=== PATIENT | male | born 1940 | race Caucasian/White ===

== ENCOUNTER → 2023-04-09 06:34 | Day surgery (SDC) | payer BC, SELFPAY | LOC: GI 06:34 | PROVIDERS: ATTENDING PHYSICIAN Internal Medicine Gastroenterology | DX: R10.13 Epigastric pain (principal); R63.4 Abnormal weight loss; K22.2 Esophageal obstruction; K25.9 Gastric ulcer, unspecified as acute or chronic, without hemorrhage or perforation; K22.89 Other specified disease of esophagus; K44.9 Diaphragmatic hernia without obstruction or gangrene; K31.89 Other diseases of stomach and duodenum; K31.7 Polyp of stomach and duodenum; R13.10 Dysphagia, unspecified; K29.50 Unspecified chronic gastritis without bleeding; K25.3 Acute gastric ulcer without hemorrhage or perforation | CPT/HCPCS: 43239; 88305; 88342 ==

== ENCOUNTER → 2023-05-20 15:08 | Outpatient (REF) | payer BC, SELFPAY | LOC: RAD 15:08 | PROVIDERS: ATTENDING PHYSICIAN Internal Medicine Gastroenterology; FAMILY PHYSICIAN Student in an Organized Health Care Education/Training Program | DX: R10.13 Epigastric pain (principal); R63.4 Abnormal weight loss | CPT/HCPCS: 74177; Q9967 ==

== ENCOUNTER 2023-08-29 11:00 | Emergency (ER) | payer BC, SELFPAY ==
[2023-08-29 11:01] VITALS: BP 167/105
[2023-08-29 11:47] VITALS: BMI 26.3
[2023-08-29 12:02] LABS: % Basophils 0.4 % (0-2); % Eosinophils 1.9 % (0-6); % Immature Granulocytes 0.4 % (0-0.5); % Lymphocytes 24.6 % (20.5-51.1); % Neutrophils 62.7 % (42.2-75.2); Absolute Eosinophils 0.1 10^3/uL (0-0.7); Absolute Lymphocytes 1.4 10^3/uL (1.2-3.4); Absolute Monocytes 0.6 10^3/uL (0.1-0.6); Absolute Neutrophils 3.6 10^3/uL (1.4-6.5); Hematocrit 35.7 % (39.0-52.0); Hemoglobin 12.6 g/dL (13.0-18.0); Mean Corp Hgb Conc. 35.3 g/dL (33.0-37.0); Mean Corpuscular Hgb 29.9 pg (27.0-31.0); Mean Corpuscular Volume 84.8 fL (80.0-94.0); Mean Platelet Volume 9.8 fL (7.4-10.4); Nucleated Red Blood Cells % 0 % (-); Platelet Count 150 10^3/uL (130-400); Red Blood Cell Count 4.21 10^6/uL (4.70-6.10); Red Cell Dist. Width 14.1 % (11.5-14.5); White Blood Cell Count 5.7 10^3/uL (4.8-10.8)
--- NOTE | 2023-08-29 12:10 | ED.GENMED ---
History of Present Illness
General
Chief Complaint: Abdominal Pain
Source: patient
Time Seen by Provider: 08/29/23 11:48
History of Present Illness
History of Present Illness:
82yoM with a history of hypertension, hyperlipidemia, and diverticulosis presenting with his for evaluation of abdominal pain x 1 week. He reports intermittent LLQ pain over the past week. He is also having malaise and chills. No fevers. He
reports normal bowel movements. He has a history of diverticulitis and this feels the same. He is otherwise asymptomatic. Only previous abdominal surgery is an appendectomy.
Past History
Past History
ED Past Medical History: CAD, HTN, Hypercholesterolemia, Renal failure and Other (Aneurysm Iliac artery, Herniated disc Lumbar spine 2 and Cervical 1, Slight Neuropathy, Duodenal Ulcer, diverticulitis)
ED Past Surgical History: Appendectomy and Cardiac (Stent)
Social History
Tobacco: Former smoker
Alcohol: Daily (Wine 2 glasses)
Personal:
Living: with family
Phy Exam
Physical Exam
Physical Exam:
Mild tenderness to LUQ. No tenderness to LLQ on palpation. Abdomen soft, non-distended. No guarding or rebound tenderness.
General Physical Exam
General Presentation: well appearing and no apparent distress
General age: appears stated age
General Skin: warm and dry
General Habitus: normal
General Mental: alert
General Hydration: appears well hydrated
Cardiovascular Exam
Cardiovascular Exam: regular rate/rhythm and no murmur
Pulmonary Exam
Pulmonary Exam: lungs clear, no respiratory distress, no crackles and no wheezing
Gastrointestinal Exam
Gastrointestinal Exam: soft and non distended
Palpation: left upper quadrant: Mild tenderness
Musculoskeletal Exam
Musculoskeletal Exam: no edema
Skin Exam
Skin Exam: normal color and warm/dry
Psychiatric Exam
Psychiatric Exam: normal mood/affect
Course
Orders/Labs/Results
Orders:
Orders
08/29/23 11:46
Complete Blood Count/With Diff Urgent
Comprehensive Metabolic Panel Urgent
Lipase Urgent
08/29/23 12:10
CT Abd/pelvis W Iv Cont Urgent
Comment:
Reason For Exam: LLQ pain, hx of diverticulitis
Abnormal Lab Results
08/29/23
11:46
RBC 4.21 L 10^6/uL
(4.70-6.10)
Hgb 12.6 L g/dL
(13.0-18.0)
Hct 35.7 L %
(39.0-52.0)
Monocytes % 10.0 H %
(1.7-9.3)
08/29/23 11:46
08/29/23 11:46
Vital Signs
Initial and Last Documented VS:
Initial Vital Signs
Temp Pulse Resp BP Pulse Ox
98.1 F 64 18 167/105 98
08/29/23 11:01 08/29/23 11:01 08/29/23 11:01 08/29/23 11:01 08/29/23 11:01
Last Documented Vital Signs
Temp Pulse Resp BP Pulse Ox
98.1 F 66 16 147/98 96
08/29/23 11:01 08/29/23 13:55 08/29/23 13:55 08/29/23 13:55 08/29/23 13:55
MDM/Problems Addressed
Differential Diagnosis Includes:
82yoM here with intermittent LLQ pain x 1 week. Hx of diverticulitis. Patient is afebrile and hemodynamically stable. He is well-appearing in no acute distress. No signs of peritonitis on abdominal exam. Differential diagnosis includes but is
not limited to: Diverticulitis, perforation, abscess, constipation, nonspecific abdominal pain
Initial ED plan: Check abdominal labs and CT abdomen. Patient declines analgesics.
*Critical Care Note
Total Time (30-74mins, 75-104mins- exclusive of procedures): Not Applicable
Update Note
Update Note:
Labs unremarkable including normal white count, renal function, LFTs, and electrolytes. No evidence of diverticulitis on CT and no other acute findings noted. No indication for admission at this time. Advised close PCP and GI follow-up. Strict
ED return precautions discussed including any worsening pain or fevers. Patient expressed understanding and is agreeable to plan. Patient discharged in stable condition.
ED Attending Note
-
Portions of this chart may have been created with voice recognition software.� Occasional wrong word or��sound alike� substitutions may have occurred due to the inherent limitations of voice recognition software.
Discharge Plan
Departure
Patient Disposition: Home (Routine Discharge)
Date of Disposition: 08/29/23
Time of Disposition: 14:51
Patient with high blood pressure during this ER visit?: Yes
Discharge Problem:
Nonspecific abdominal pain
Instructions: Abdominal Pain
Prescriptions:
No Action
atorvastatin 20 MG tablet
20 mg PO HS
tramadol 50 MG tablet
50 mg PO DAILY
Patient Comments:
10/29/2022: last filled 09/20/22, 120 tabs for 30 days from [facility]
alprazolam 0.5 MG tablet
0.5 mg PO HS
Patient Comments:
10/29/2022: last filled 08/19/22, 90 tabs for 90 days from [facility]
famotidine 20 MG tablet
20 mg PO HS
aspirin 81 MG tablet,chewable
81 mg PO QPM
vitamin B complex 1 TAB tablet
1 tab PO DAILY
lansoprazole 30 MG tablet,disintegrat, delay rel
30 mg PO DAILY
PreserVision AREDS 1 CAP capsule
1 cap PO BID
cyanocobalamin (vitamin B-12) [Vitamin B-12] 1,000 mcg Tablet
1,000 mcg PO Q48H
dorzolamide-timolol 22.3-6.8 mg/mL drops
1 drp BOTH EYES BID
magnesium 250 mg Tablet
250 mg PO DAILY
alfuzosin 10 mg tablet extended release 24 hr
10 mg PO DAILY
valsartan 80 mg Tablet
240 mg PO DAILY 30 Days Qty: 90 0RF
amlodipine 5 mg Tablet
5 mg PO DAILY 30 Days Qty: 30 0RF
simethicone 80 mg Tablet,Chewable
80 mg PO TIDPRN PRN (Reason: gi upset) 30 Days Qty: 90 0RF
cefdinir 300 mg capsule
300 mg PO Q12H 5 Days Qty: 10 0RF
metronidazole 500 mg tablet
500 mg PO Q8H 3 Days Qty: 9 0RF
ondansetron 4 mg tablet,disintegrating
4 mg PO Q8H PRN (Reason: nausea and vomiting) 4 Days Qty: 12 0RF
Referrals:
UNKNOWN - PT DOES,NOT KNOW [Family Provider] -
Activity Restrictions/Additional Instructions:
Please follow-up with your family doctor and aerial photographer next week. Return to the ER with any new or worsening symptoms.
Interventions
Interventions:
*Risk Screen - Suicide Last Done: 08/29/23 11:01
*General Assessment Last Done: 08/29/23 11:01
*ED COVID-19 Vaccine History Last Done: 08/29/23 11:01
VS-Hewoxh-Horpgplyjy Assessment Last Done: 08/29/23 11:44
Discharge Date and Time
Print Language: MALTESE
[2023-08-29 12:13] LABS: ALT (SGPT) 19 U/L (0-50); AST (SGOT) 22 U/L (17-59); Albumin 4.4 g/dl (3.5-5.0); Alkaline Phosphatase 86 U/L (38-126); Blood Urea Nitrogen 20 mg/dl (9-20); Calcium 9.7 mg/dl (8.4-10.2); Carbon Dioxide 23 mmol/L (22-30); Chloride 105 mmol/L (98-107); Estimated Creatinine Clearance 46 ml/min; Glucose 99 mg/dl (70-99); Lipase 181 U/L (23-300); Potassium 3.9 mmol/L (3.5-5.1); Sodium 137 mmol/L (135-145); Total Bilirubin 0.7 mg/dl (0.2-1.3); Total Protein 6.6 g/dl (6.3-8.2); eGFR > 60.00
[2023-08-29 13:55] VITALS: BP 147/98
== END 2023-08-29 15:30 | disposition home or self-care (01) ==
LOC: EMR 11:00
PROVIDERS: Emergency Medicine; EMERGENCY PHYSICIAN Emergency Medicine
DX: R10.32 Left lower quadrant pain (principal); R68.83 Chills (without fever); R53.81 Other malaise; K57.90 Diverticulosis of intestine, part unspecified, without perforation or abscess without bleeding; E78.00 Pure hypercholesterolemia, unspecified; I25.10 Atherosclerotic heart disease of native coronary artery without angina pectoris; I72.3 Aneurysm of iliac artery; I12.9 Hypertensive chronic kidney disease with stage 1 through stage 4 chronic kidney disease, or unspecified chronic kidney disease; N18.9 Chronic kidney disease, unspecified; G62.9 Polyneuropathy, unspecified; Z87.891 Personal history of nicotine dependence; Z95.5 Presence of coronary angioplasty implant and graft; Z79.82 Long term (current) use of aspirin; Z88.0 Allergy status to penicillin; Z88.2 Allergy status to sulfonamides; Z91.030 Bee allergy status
CPT/HCPCS: 99285; 74177; 80053; 83690; 85025; Q9967

== ENCOUNTER → 2023-12-29 06:24 | Day surgery (SDC) | payer BC, SELFPAY | LOC: GI 06:24 | PROVIDERS: ATTENDING PHYSICIAN Internal Medicine Gastroenterology | DX: K22.89 Other specified disease of esophagus (principal); K22.2 Esophageal obstruction; K31.7 Polyp of stomach and duodenum; K44.9 Diaphragmatic hernia without obstruction or gangrene; K31.89 Other diseases of stomach and duodenum; K25.9 Gastric ulcer, unspecified as acute or chronic, without hemorrhage or perforation | CPT/HCPCS: 43239; 88305; 88342 ==

== ENCOUNTER → 2024-02-04 11:01 | Outpatient (REF) | payer BC, SELFPAY | LOC: RCS 11:01 | PROVIDERS: ATTENDING PHYSICIAN Nurse Practitioner; FAMILY PHYSICIAN Student in an Organized Health Care Education/Training Program | DX: I27.20 Pulmonary hypertension, unspecified (principal) | CPT/HCPCS: 93306 ==

== ENCOUNTER 2024-08-13 18:29 | Emergency (ER) | payer BC, SELFPAY ==
[2024-08-13 18:34] VITALS: BP 171/109
[2024-08-13 18:56] LABS: % Basophils 0.5 % (0-2); % Eosinophils 2.9 % (0-6); % Immature Granulocytes 0.2 % (0-0.5); % Lymphocytes 22.6 % (20.5-51.1); % Monocytes 10.3 % (1.7-9.3); % Neutrophils 63.5 % (42.2-75.2); Absolute Eosinophils 0.2 10^3/uL (0-0.7); Absolute Lymphocytes 1.4 10^3/uL (1.2-3.4); Absolute Monocytes 0.6 10^3/uL (0.1-0.6); Absolute Neutrophils 3.9 10^3/uL (1.4-6.5); Hematocrit 35.2 % (39.0-52.0); Mean Corp Hgb Conc. 34.1 g/dL (33.0-37.0); Mean Corpuscular Hgb 30.4 pg (27.0-31.0); Mean Corpuscular Volume 89.1 fL (80.0-94.0); Nucleated Red Blood Cells % 0 % (-); Platelet Count 162 10^3/uL (130-400); Red Blood Cell Count 3.95 10^6/uL (4.70-6.10); Red Cell Dist. Width 14.2 % (11.5-14.5); White Blood Cell Count 6.1 10^3/uL (4.8-10.8)
[2024-08-13 19:25] LABS: ALT (SGPT) 21 U/L (0-50); AST (SGOT) 24 U/L (17-59); Albumin 4.8 g/dl (3.5-5.0); Alkaline Phosphatase 81 U/L (38-126); Blood Urea Nitrogen 21 mg/dl (9-20); Calcium 9.4 mg/dl (8.4-10.2); Carbon Dioxide 23 mmol/L (22-30); Chloride 106 mmol/L (98-107); Glucose 105 mg/dl (70-99); Lipase 242 U/L (23-300); Potassium 4.1 mmol/L (3.5-5.1); Sodium 138 mmol/L (135-145); Total Bilirubin 0.6 mg/dl (0.2-1.3); Total Protein 7.3 g/dl (6.3-8.2); eGFR > 60.00
[2024-08-13 19:51] LABS: Troponin I < 0.012 ng/ml
[2024-08-13 22:07] VITALS: BP 181/102
[2024-08-13 22:08] VITALS: BMI 30.3
[2024-08-13 23:00] VITALS: BP 166/104
[2024-08-13] MEDS: PROTONIX IV 40 MG IV (23:58)
[2024-08-13] MEDS: NSS 1000 IV (23:58)
[2024-08-14] VITALS: BP 169/112
--- NOTE | 2024-08-14 00:08 | ED.GENMED ---
History of Present Illness
General
Chief Complaint: Abdominal Pain
Source: patient, spouse, previous radiology exam (Unremarkable CT abdomen pelvis May 2023, August 2023.) and previous hospital records (Upper endoscopy December 2019 for-reevaluation of gastric ulcer. Evidence of gastritis, hiatal hernia)
Exam Limitations: none
Time Seen by Provider: 08/13/24 22:48
Nursing documentation reviewed up to this point in time: agreed with
History of Present Illness
History of Present Illness:
This is an 83-year-old gentleman who resides at home with his . He has history of CAD, hypertension, hyperlipidemia, diverticulosis with 1 previous episode of sigmoid diverticulitis, history of peptic ulcer disease, hiatal hernia, chronic
kidney disease stage IIIa.
He complains of upper abdominal pain/epigastric pain that began around 2 PM today approximately 3 to 4 hours after eating a large breakfast. Upper abdominal pain has been persistent throughout the day accompanied with frequent belching, radiating
to his back and intermittent mild nausea without vomiting. He took a dose of antacid without relief and no significant relief with intermittent belching throughout the day. He does admit to rare similar episodes in the past but generally not as
severe and not as persistent.
Blood pressure has been moderately elevated throughout the day today as well.
His blood pressure had been running low, personnel clerks supervisor adjusted his antihypertensives 1 month ago due to hypotension and since then blood pressure has been well-controlled throughout the month with systolic running 120s to 130s.
Chronically maintained on Dexilant 60 mg but admits to running out of this a few days ago and thus has been taking an old prescription of Dexilant 30 mg over the past few days.
He denies chest pain or cough no shortness of breath, no dysuria no urgency no hematuria. He has not passed a bowel movement today, his last bowel movement was yesterday. He has not been passing gas.
Currently epigastric pain is improved but has not completely resolved.
Past History
Past History
ED Past Medical History: CAD, HTN, Hypercholesterolemia, Renal failure and Other (Aneurysm Iliac artery, Herniated disc Lumbar spine 2 and Cervical 1, Slight Neuropathy, Duodenal Ulcer, diverticulitis)
ED Past Surgical History: Appendectomy and Cardiac (Stent)
Social History
Tobacco: Former smoker
Alcohol: Daily (Wine 2 glasses)
Personal:
Living: with family
Phy Exam
Physical Exam
Physical Exam:
GENERAL: 83-year-old gentleman appears stated age, awake and alert, pleasant, appears in no acute distress. is accompanying.
EYE: anicteric
NECK: Supple, nontender, no meningismus, no significant adenopathy.
ENT: oral mucosa is moist. Unremarkable.
CARDIAC: Regular rate and rhythm. no murmur.
LUNGS: Clear breath sounds bilaterally, no acute respiratory distress, no wheezes/rales/rhonchi
ABDOMEN: Rotund, soft, nondistended, mild generalized tenderness to the upper abdomen, no r/g, no cvat. Hyperactive bowel sounds.
NEUROLOGICAL: Alert and oriented x3, no focal neuro deficits.
SKIN: Warm and dry, normal color, skin intact. No rash.
MUSCULOSKELETAL: No C/C/E. peripheral pulses are full and equal b/l. No palpable tenderness.
PSYCH: Normal and appropriate interaction.
Course
Orders/Labs/Results
Orders:
Orders
08/13/24 18:38
ECG [Electrocardiogram (*1)] Urgent
Reason for Study: Chest Pain
EKG- Treatment ONCE
08/13/24 18:45
Complete Blood Count/With Diff Urgent
Comprehensive Metabolic Panel Urgent
Lipase Urgent
Troponin I Urgent
08/13/24 23:26
0.9% Sodium Chloride 1000 ml [Nss] 1,000 ml IV 250 mls/hr
Pantoprazole [Protonix IV] 40 mg IV NOW STA
08/13/24 23:53
Sterile Water [Sterile Water For Injection] 10 ml .ROUTE .[facility]
08/14/24 00:00
CT Abd/pelvis W Iv Cont Urgent
Reason For Exam: acute gen upper abd pain, nausea, hyperactive BS
Abnormal Lab Results
08/13/24
18:45
RBC 3.95 L 10^6/uL
(4.70-6.10)
Hgb 12.0 L g/dL
(13.0-18.0)
Hct 35.2 L %
(39.0-52.0)
Monocytes % 10.3 H %
(1.7-9.3)
BUN 21 H mg/dl
(9-20)
Glucose 105 H mg/dl
(70-99)
08/13/24 18:45
08/13/24 18:45
Vital Signs
Initial and Last Documented VS:
Initial Vital Signs
Temp Pulse Resp BP Pulse Ox
97.9 F 77 16 171/109 99
08/13/24 18:34 08/13/24 18:34 08/13/24 18:34 08/13/24 18:34 08/13/24 18:34
Last Documented Vital Signs
Temp Pulse Resp BP Pulse Ox
97.9 F 60 18 169/94 95
08/13/24 18:34 08/14/24 01:45 08/14/24 01:45 08/14/24 01:02 08/14/24 01:45
MDM/Problems Addressed
Differential Diagnosis Includes:
Concern for exacerbation of gastritis/hiatal hernia, pancreatitis, cholecystitis, small bowel obstruction, diverticulitis. Less likely CAD.
Labs thus far are unremarkable. Troponin is negative. Lipase is normal.
Mild but stable anemia. Normal white blood cell count.
EKG showing normal sinus rhythm, right bundle branch block, similar and unchanged from previous October 2022.
Reassuring that pain has improved but not completely resolved and exam notable for hyperactive bowel sounds with lack of bowel movement/passage of gas, thus significant concern for distal small bowel obstruction thus will check CT abdomen pelvis.
*Radiology
Radiology exam reviewed: radiology read reviewed
*Pulse Oximetry
SaO2: 98
Oxygen Mode of Delivery: Room air
Patient hypoxic: no
*EKG
Interpreted by ED Provider?: Yes
Comparison EKG: no changes
Rate: normal
Rhythm: sinus
[place]: normal axis
QRS Pattern: right bundle branch block
Ischemia: no ischemia
*Finance Advisor Interpretation
Rate: normal
Interpretation: normal
Rhythm: sinus
*Critical Care Note
Total Time (30-74mins, 75-104mins- exclusive of procedures): Not Applicable
Update Note
Update Note:
Patient is pain-free and comfortable.
He is currently hungry.
Abdomen is soft without appreciable tenderness.
CAT scan shows distended gallbladder but no definitive evidence of cholecystitis and reassuring that patient is pain-free and comfortable and reassuring that labs are unremarkable, within normal limits.
Recommend he increase Dexilant back to 60 mg daily.
He remains mildly hypertensive but improving.
Recommend continuing current antihypertensives and recommended to touch base with personnel clerks supervisor this week especially if blood pressure remains elevated.
Follow-up with PCP for recheck as well as electrical contacts adjuster as needed.
Return precautions discussed.
ED Attending Note
-
Portions of this chart may have been created with voice recognition software.� Occasional wrong word or��sound alike� substitutions may have occurred due to the inherent limitations of voice recognition software.
Discharge Plan
Departure
Patient Disposition: Home (Routine Discharge)
Date of Disposition: 08/14/24
Time of Disposition: 01:55
Patient with high blood pressure during this ER visit?: Yes
Condition: Good
Discharge Problem:
Acute upper abdominal pain
Instructions: [place] diet, Abdominal Pain
Prescriptions:
No Action
atorvastatin 20 MG tablet
20 mg PO HS
tramadol 50 MG tablet
50 mg PO DAILY
Patient Comments:
10/29/2022: last filled 09/20/22, 120 tabs for 30 days from [facility]
alprazolam 0.5 MG tablet
0.5 mg PO HS
Patient Comments:
10/29/2022: last filled 08/19/22, 90 tabs for 90 days from [facility]
famotidine 20 MG tablet
20 mg PO HS
aspirin 81 MG tablet,chewable
81 mg PO QPM
vitamin B complex 1 TAB tablet
1 tab PO DAILY
lansoprazole 30 MG tablet,disintegrat, delay rel
30 mg PO DAILY
PreserVision AREDS 1 CAP capsule
1 cap PO BID
cyanocobalamin (vitamin B-12) [Vitamin B-12] 1,000 mcg Tablet
1,000 mcg PO Q48H
dorzolamide-timolol 22.3-6.8 mg/mL drops
1 drp BOTH EYES BID
magnesium 250 mg Tablet
250 mg PO DAILY
alfuzosin 10 mg tablet extended release 24 hr
10 mg PO DAILY
valsartan 80 mg Tablet
240 mg PO DAILY 30 Days Qty: 90 0RF
amlodipine 5 mg Tablet
5 mg PO DAILY 30 Days Qty: 30 0RF
simethicone 80 mg Tablet,Chewable
80 mg PO TIDPRN PRN (Reason: gi upset) 30 Days Qty: 90 0RF
cefdinir 300 mg capsule
300 mg PO Q12H 5 Days Qty: 10 0RF
metronidazole 500 mg tablet
500 mg PO Q8H 3 Days Qty: 9 0RF
ondansetron 4 mg tablet,disintegrating
4 mg PO Q8H PRN (Reason: nausea and vomiting) 4 Days Qty: 12 0RF
Referrals:
Temo Coto MD [Family Provider, Internal Medicine] - Call in 1-3 days for appt
Activity Restrictions/Additional Instructions:
Increase Dexilant to 60 mg daily.
Continue current antihypertensive medications.
Maintain a bland diet over the next several days.
Follow-up with your PCP as well as electrical contacts adjuster for recheck.
If BP remains elevated, touch base with your personnel clerks supervisor for further evaluation.
Interventions
Interventions:
*Risk Screen - Suicide Last Done: 08/13/24 22:09
*General Assessment Last Done: 08/13/24 22:09
*Neglect/Abuse Screening Last Done: 08/13/24 22:09
*ED- Fall Risk Assessment Last Done: 08/13/24 22:09
*ED COVID-19 Vaccine History Last Done: 08/13/24 22:09
*Nursing Disposition Last Done: 08/14/24 02:49
HR-Jamsjn-Hlscioxdli Assessment Last Done: 08/13/24 22:22
Discharge Date and Time
Discharge Date/Time: 08/14/24 02:15
Print Language: CUBAN
[2024-08-14 01:02] VITALS: BP 169/94
== END 2024-08-14 02:15 | disposition home or self-care (01) ==
LOC: EMR 18:29
PROVIDERS: Emergency Medicine; EMERGENCY PHYSICIAN Emergency Medicine; FAMILY PHYSICIAN Internal Medicine
DX: R10.9 Unspecified abdominal pain (principal); I25.10 Atherosclerotic heart disease of native coronary artery without angina pectoris; E78.00 Pure hypercholesterolemia, unspecified; I12.9 Hypertensive chronic kidney disease with stage 1 through stage 4 chronic kidney disease, or unspecified chronic kidney disease; N18.31 Chronic kidney disease, stage 3a; Z87.11 Personal history of peptic ulcer disease; Z87.891 Personal history of nicotine dependence; Z90.49 Acquired absence of other specified parts of digestive tract; Z95.5 Presence of coronary angioplasty implant and graft
CPT/HCPCS: 99284; 96374; 74177; 80053; 83690; 84484; 85025; 93005; Q9967

== ENCOUNTER 2024-12-04 21:20 | Inpatient (IN) | payer BC, SELFPAY ==
[2024-12-04] VITALS (9 sets, daily range): BP systolic 99–155; BP diastolic 65–94; BMI 30.1
[2024-12-04 18:01] LABS: Urine Character Clear (Clear)
[2024-12-04 18:02] LABS: Hematocrit 39.2 % (39.0-52.0); Hemoglobin 13.1 g/dL (13.0-18.0); Mean Corp Hgb Conc. 33.4 g/dL (33.0-37.0); Mean Corpuscular Volume 87.3 fL (80.0-94.0); Nucleated Red Blood Cells % 0 % (-); Platelet Count 164 10^3/uL (130-400); Red Cell Dist. Width 15.2 % (11.5-14.5)
[2024-12-04 18:08] LABS: Urine Squamous Cell 0-2 /LPF (Few)
[2024-12-04 18:14] LABS: Urine Red Blood Cell 0-2 /HPF (0-2)
[2024-12-04] MEDS: TYLENOL 650 MG PO ×2 (18:14→23:17)
[2024-12-04 18:22] LABS: AST (SGOT) 239 U/L (17-59); Albumin 4.9 g/dl (3.5-5.0); Alkaline Phosphatase 249 U/L (38-126); Blood Urea Nitrogen 20 mg/dl (9-20); Calcium 9.2 mg/dl (8.4-10.2); Carbon Dioxide 19 mmol/L (22-30); Chloride 97 mmol/L (98-107); Estimated Creatinine Clearance 40 ml/min; Glucose 134 mg/dl (70-99); Potassium 4.4 mmol/L (3.5-5.1); Sodium 134 mmol/L (135-145); Total Protein 7.5 g/dl (6.3-8.2); eGFR 53.84
--- NOTE | 2024-12-04 18:23 | ED.GENMED ---
History of Present Illness
General
Chief Complaint: Fever
Source: patient, records and family
Exam Limitations: none
Time Seen by Provider: 12/04/24 17:31
Nursing documentation reviewed up to this point in time: agreed with
History of Present Illness
History of Present Illness:
Note:
CHIEF COMPLAINT(S)
Abdominal pain, generalized discomfort, tachycardia, and abdominal distension.
HISTORY OF PRESENT ILLNESS
The patient is an 84-year-old male with a significant history of atrial fibrillation and previous sepsis due to diverticulitis, presenting with abdominal pain and a recent increase in heart rate. The patients symptoms began with generalized
abdominal pain described as 'all over the stomach,' which is present upon questioning, though not exacerbated by palpation. The abdomen is noticeably distended. The tachycardia, with heart rates reaching up to 130 beats per minute, was noted acutely
today. The patient�s blood pressure was hypotensive at one point, recorded at 120/55 mmHg. He also reported running out of breath on his way to the appointment, indicating dyspnea on exertion, although no fever was noted or reported. There is an
acknowledged prior episode of sepsis related to diverticulitis from three years ago. Current medications include Alprazolam, Tamsulosin, Valsartan, Hydrochlorothiazide, Vitamin D3, Aspirin, Magnesium, and Vitamin B12.
PAST MEDICAL AND SURIGICAL HISTORY
Significant for atrial fibrillation, with history of undergoing stent placement. Prior hospitalization for sepsis secondary to diverticulitis three years ago.
CHRONIC MEDICAL CONDITIONS SIGNIFICANTLY AFFECTING CARE
- Atrial Fibrillation, managed on Apixaban (Eliquis).
- Hypertension.
SOCIAL HISTORY
The patient uses a hearing aid but experienced communication difficulties due to hearing impairment during the assessment.
MEDICATIONS
- Alprazolam.
- Tamsulosin.
- Valsartan.
- Hydrochlorothiazide.
- Vitamin D3.
- Aspirin (baby dose).
- Magnesium.
- Vitamin B12.
REVIEW OF SYSTEMS
- Cardiovascular: Tachycardia.
- Respiratory: Dyspnea on exertion.
- Digestive: Generalized abdominal pain; abdominal distension.
- Genitourinary: Increased urination was noted.
PHYSICAL EXAM
General: Alert, no acute distress. fever 101
Skin: Warm, dry. rash, bulls eye right lower leg
Head: Normocephalic, atraumatic.
Neck: Supple, trachea midline.
Eyes, Ears, Nose, and Mouth and Throat: Oral mucosa moist.
Cardiovascular: Tachycardia noted.
Respiratory: Respirations are non-labored.
Gastrointestinal: Abdominal distension; mild bilateral lower abdominal tenderness.
Back: Normal range of motion, normal alignment.
Musculoskeletal: Normal ROM, normal strength.
Neurological: Alert and oriented to person, place, time, and situation, No focal neurological deficit observed.
Psychiatric: Cooperative, appropriate mood & affect.
PROBLEM LIST
- Acute:
- Generalized abdominal pain.
PLAN
We will conduct further diagnostic testing to ascertain the cause of symptoms. This will include a chest X-ray, a CT scan of the abdomen, and blood testing to evaluate for potential infection. A urine sample will be collected to investigate any
potential urinary issues. The patient will remain admitted to the hospital for further monitoring and management of his symptoms.
DIFFERENTIAL DIAGNOSIS
The Differential Diagnosis includes, in no particular order and is not limited to:
- Acute abdominal infection (possible sepsis recurrence)
- Gastrointestinal obstruction
- Exacerbation of diverticulitis
- Heart failure
- Acute urinary retention or infection
- Dehydration with subsequent hypotension
- Medication-related issues
- Acute exacerbation of atrial fibrillation
- Adrenal insufficiency
- Pulmonary embolism
CARE-UPDATE
12/04/24 - 20:27
Temperature elevated at 105 despite initial improvement with Tylenol. IV fluids given . Started on IV Cefepime, Metronidazole, and Vancomycin; admission coordinated with hospitalists. Administered 2,400 mL normal saline IV fluid bolus.
EKG
My independent EKG interpretation is:
- Time of EKG: Not specified
- Rhythm: Not specified
- Heart rate: Not specified
- [place] interval: Not specified
- QRS duration: Normal
- QT interval: Not specified
- [place]: Not specified
- Abnormalities: Atrial prevalence observed
- ST segment changes: None noted
- T wave inversions: Not specified
- Arrhythmias: Not specified
Disposition:
SUMMARY OF ENCOUNTER
The patient, an 84-year-old male with a history of atrial fibrillation and previous sepsis from diverticulitis, was evaluated in the emergency department for generalized abdominal pain, tachycardia, and abdominal distension. Upon evaluation, he
presented with signs consistent with sepsis, including fever, tachycardia, and hypotension. The abdominal pain and distension raised concerns for possible gastrointestinal complications. A CT scan of the abdomen and pelvis showed mild distension of
the gallbladder, without signs of diverticulitis. The source of infection was unclear, but there was a concern for sepsis given the patients history of gram-negative bacteremia from 2021.
DISPOSITION
Admit to hospitalist.
ASSESSMENT
Possible sepsis with unclear source of infection, previous gram-negative bacteremia, possible biliary pathology.
EMERGENCY TREATMENTS ADMINISTERED
Administered intravenous fluids, cefepime, metronidazole, and vancomycin.
MANAGEMENT OF THE PATIENTS CARE WAS DISCUSSED WITH
Hospitalist.
PLAN
The patient will be admitted to the hospital for further work-up and management of possible sepsis. The plan includes continued IV antibiotics and further diagnostics to determine the source of infection.
INDEPENDENT REVIEW OF LABS AND INTERPRETATION OF TESTS
My independent review of CT abdomen and pelvis revealed mild distension of the gallbladder but no signs of diverticulitis.
MEDICAL DECISION MAKING
- Number and Complexity of Problems Addressed: Chronic conditions affecting care include atrial fibrillation and previous sepsis due to diverticulitis. Differential diagnosis includes acute abdominal infection, gastrointestinal obstruction,
exacerbation of diverticulitis, heart failure, acute urinary retention or infection, dehydration with hypotension, medication-related issues, acute exacerbation of atrial fibrillation, adrenal insufficiency, and pulmonary embolism.
- Data:
Category 1
My independent interpretation of the CT abdomen and pelvis shows mild distension of the gallbladder without evidence of diverticulitis.
Category 3
Discussion of management with hospitalist.
- Risk:
Prescription medication was prescribed: IV antibiotics (cefepime, metronidazole, vancomycin).
Care significantly affected by Social Determinants of Health.
DIAGNOSIS
Sepsis, unspecified organism (ICD-10: A41.9).
Past History
Past History
ED Past Medical History: CAD, HTN, Hypercholesterolemia, Renal failure and Other (Aneurysm Iliac artery, Herniated disc Lumbar spine 2 and Cervical 1, Slight Neuropathy, Duodenal Ulcer, diverticulitis)
ED Past Surgical History: Appendectomy and Cardiac (Stent)
Social History
Tobacco: Former smoker
Alcohol: Daily (Wine 2 glasses)
Personal:
Living: with family
Phy Exam
Physical Exam
Physical Exam:
.
Sepsis
Sepsis Screening
Sepsis Assessment: Severe Sepsis
Sepsis Screening: Lactate >/=4mmol/L
Sepsis Screen
Sepsis Screen: Severe Sepsis
Date: 12/04/24
Time: 21:14
Course
Orders/Labs/Results
Orders:
Orders
12/04/24 17:31
Cardiac Monitoring- Treatment ONCE
IV Insert/Care/Rem.- Treatment PRN
Straight cath- Treatment ONCE
Acetaminophen [Tylenol] 650 mg PO NOW STA
Pulse Ox/cont/shift [RESP] Urgent
Quantity: 1
12/04/24 17:32
CR Chest Portable - 1 View Urgent
Comment:
Reason For Exam: short of breath, fever
Reason Study Needs to be Portable: Patient Unstable
12/04/24 17:33
CT Abd/pelvis W Iv Cont Urgent
Comment:
Reason For Exam: bilateral lower abd pain, fever
12/04/24 17:48
Complete Blood Count/With Diff Urgent
Comprehensive Metabolic Panel Urgent
Lactic Acid Q4H
Comment: CANCEL 2nd LACTIC ACID IF 1st LACTIC ACID IS LESS THAN 2
Lyme Progressive Urgent
Blood Culture Q30M
JOSE Source: Blood/Venous
Specimen Description:
Influenza A+B Rapid Molecular Urgent
JOSE Source: Nasal Swab
Specimen Description:
12/04/24 17:53
Urinalysis Reflex To Culture Urgent
Date Specimen was Collected: 12/04/24
Time Specimen was Collected: 17:45
Urine Microscopic Reflex Cult Urgent
Blood Culture Q30M
JOSE Source: Blood/Venous
Specimen Description:
12/04/24 18:29
Cefepime HCl [Maxipime] 2,000 mg IV NOW STA
MetroNIDAZOLE 500 MG/100 ML [Flagyl 500 mg] 100 ml IV NOW
12/04/24 18:31
0.9% Sodium Chloride 1000 ml [Nss] 2,400 ml IV NOW STA
12/04/24 18:55
Vancomycin [Vancocin] 2,000 mg 0.9% Sodium Chloride 500 ml [Nss] 500 ml IV NOW
12/04/24 19:27
COVID-19 Antigen Urgent
Source: Nasal Swab
12/04/24 20:52
Admit/Transfer Patient As Directed
Co-Sign Provider:
Level of Care: Inpatient admission
Assign to:: IMU- Intermediate Care
Physician / Group: ekaterina
Diagnosis: sepsis
Reason for Hospitalization: sepsis
Expected length of stay greater than two midnights?: Yes
ELOS- Estimated Length of Stay in days: 2
I certify the patient meets the requirements for IP care: Yes
PRN Pain Medication Management As Directed
May give lesser potent ordered pain med per pt: Yes
preference::
Protocol:: Medication orders for pain may be administered in a
manner that supports deferring to patient preference
when the pt is:
- Requesting an ordered lesser potent pain medication.
Least to most potent pain medications are defined
as: acetaminophen < NSAID < tramadol < opioids
(morphine, oxycodone, hydromorphone).
- Requesting a lesser dose of the same medication IF
ORDERED.
- Requesting a less intrusive route of administration
if both routes are prescribed by the provider (PO <
IV).
12/04/24 20:53
Code Status As Directed
Resuscitation Status: Full Code
12/04/24 20:57
US Abdomen Complete/Upper Urgent
Comment:
Reason For Exam: cholecsystitis/ab pain sepsis
12/04/24 21:01
PRN Pain Medication Management As Directed
May give lesser potent ordered pain med per pt: Yes
preference::
Protocol:: Medication orders for pain may be administered in a
manner that supports deferring to patient preference
when the pt is:
- Requesting an ordered lesser potent pain medication.
Least to most potent pain medications are defined
as: acetaminophen < NSAID < tramadol < opioids
(morphine, oxycodone, hydromorphone).
- Requesting a lesser dose of the same medication IF
ORDERED.
- Requesting a less intrusive route of administration
if both routes are prescribed by the provider (PO <
IV).
12/04/24 21:45
Lactic Acid Q4H
Comment: CANCEL 2nd LACTIC ACID IF 1st LACTIC ACID IS LESS THAN 2
12/04/24 22:00
Doxycycline Hyclate [Vibramycin] 100 mg 0.9% Sodium Chloride 250 ml [Nss] 250 ml IV Q12H
12/07/24 11:00
DC Protocol for Telemetry ONCE
Abnormal Lab Results
12/04/24 12/04/24
17:48 17:53
RBC 4.49 L 10^6/uL
(4.70-6.10)
RDW 15.2 H %
(11.5-14.5)
Sodium 134 L mmol/L
(135-145)
Chloride 97 L mmol/L
(98-107)
Carbon Dioxide 19 L mmol/L
(22-30)
Glucose 134 H mg/dl
(70-99)
Lactic Acid 8.1 H* mmol/L
(0.7-2.0)
Total Bilirubin 1.4 H mg/dl
(0.2-1.3)
AST 239 H U/L
(17-59)
ALT 91 H U/L
(0-50)
Alkaline Phosphatase 249 H U/L
(38-126)
Urine Ketones 1+ A
(Negative)
Urine Bacteria (Reflex) Few A
(Negative)
Urine Albumin (Reflex) 2+ A
(Neg - Trace)
12/04/24 17:48
12/04/24 17:48
Vital Signs
Initial and Last Documented VS:
Initial Vital Signs
Temp Pulse Resp Pulse Ox
101.4 F H 154 48 93
12/04/24 17:29 12/04/24 17:29 12/04/24 17:29 12/04/24 17:29
Last Documented Vital Signs
Temp Pulse Resp BP Pulse Ox
105.1 F H 110 28 151/90 97
12/04/24 20:10 12/04/24 20:45 12/04/24 20:45 12/04/24 20:30 12/04/24 20:45
*Pulse Oximetry
SaO2: 95
Nasal Cannula flow liters per minute: 3
Oxygen Mode of Delivery: Room air
Patient hypoxic: no
*Critical Care Note
Total Time (30-74mins, 75-104mins- exclusive of procedures): 35
comment:
Critical care statement: A total of 35 minutes of critical care time was provided for this patient. This includes management of unstable vital signs, evaluation of the patient at bedside, reviewing the patient's pertinent medical records, discussion
with consultants, review of old EKGs and review of pertinent medical records. This time with separate from time utilized to perform the aforementioned documented procedures
ED Attending Note
-
Portions of this chart may have been created with voice recognition software.� Occasional wrong word or��sound alike� substitutions may have occurred due to the inherent limitations of voice recognition software.
Discharge Plan
Departure
Patient Disposition: Admit
Date of Disposition: 12/04/24
Time of Disposition: 20:16
Admit to: IMU
Presentation/result/management discussed w/ accepting MD/DO: Hospitalist
Patient with high blood pressure during this ER visit?: Yes
Condition: Fair
Covid-19: Negative COVID-19
Discharge Problem:
Fever, Lactic acidosis
Prescriptions:
No Action
atorvastatin 20 MG tablet
20 mg PO HS
famotidine 20 MG tablet
20 mg PO HS
aspirin 81 MG tablet,chewable
81 mg PO QPM
PreserVision AREDS 1 CAP capsule
1 cap PO BID
cyanocobalamin (vitamin B-12) [Vitamin B-12] 1,000 mcg Tablet
1,000 mcg PO Q48H
dorzolamide-timolol 22.3-6.8 mg/mL drops
1 drp BOTH EYES BID
alfuzosin 10 mg tablet extended release 24 hr
10 mg PO DAILY
spironolactone 25 mg tablet
25 mg PO DAILY
carvedilol 3.125 mg tablet
3.125 mg PO BID
valsartan 320 mg tablet
160 mg PO DAILY
furosemide 20 mg tablet
20 mg PO DAILY
dexlansoprazole 60 mg capsule,biphase delayed releas
60 mg PO DAILY
cholecalciferol (vitamin D3) 125 mcg (5,000 unit) Tablet
125 mcg PO DAILY
magnesium citrate 100 mg Tablet
100 mg PO DAILY
Referrals:
UNKNOWN - PT DOES,NOT KNOW [Family Provider]
Interventions
Interventions:
*Risk Screen - Suicide Last Done: 12/04/24 18:00
*General Assessment Last Done: 12/04/24 18:00
*Neglect/Abuse Screening Last Done: 12/04/24 18:00
*ED- Fall Risk Assessment Last Done: 12/04/24 18:05
*ED COVID-19 Vaccine History Last Done: 12/04/24 17:32
*ED Influenza Vaccine History Last Done: 12/04/24 18:00
ED- Neurological Assessment Last Done: 12/04/24 20:31
ED-Skin Assessment Last Done: 12/04/24 20:31
Discharge Date and Time
Print Language: HEBREW
[2024-12-04 18:32] LABS: ALT (SGPT) 91 U/L (0-50)
[2024-12-04] MEDS: MAXIPIME 2000 MG IV (19:01)
[2024-12-04] MEDS: NSS 2400 ML IV (19:02)
[2024-12-04] MEDS: FLAGYL 500 MG 100 IV (19:03)
[2024-12-04 19:46] LABS: COVID-19 Antigen Negative (Negative)
[2024-12-04] MEDS: VANCOCIN 540 MG IV (20:20)
--- NOTE | 2024-12-04 21:03 | HPS.HSE ---
Family Physician
-
Family Physician: NOT KNOW UNKNOWN - PT DOES
Chief Complaint
-
abdominal pain
History of Present Illness
84-year-old male past medical history of gram-negative bacteremia secondary to diverticulitis, hypertension, hyperlipidemia, CAD, CKD, diverticulosis, hepatic steatosis, anxiety, presenting with abdominal pain diffusely starting 2 days ago. Today
he was confused and developed acute sweats. No vomiting. Recently has been constipated no shortness of breath. No chest pain. Denies urinary symptoms but has been urinating more frequently today.
He was also noted to have a bull's-eye rash on the right ankle. He recently did yard work but denies any tick bites.
He does have chronic back pain and knee pain which has been hurting a bit more as well as some neck pain which is more than usual.
He drinks 2 glasses of wine sometimes. Denies smoking.
Medical History
Past Medical History
Past Medical History: Reports Other (gram-negative bacteremia secondary to suspected diverticulitis, hypertension, hyperlipidemia, CAD, CKD, diverticulosis, hepatic steatosis, anxiety)
Past Surgical History: Reports None
Social History
Tobacco: Non-smoker
Alcohol: Occasional
Drug: None
Family History
Family History: Not pertinent
Allergies / Home Medications
Allergies reflects when Allergies were last updated in [employer].
Home Medications with original date entered in [employer]
Allergy/Medication List:
Allergies
Allergy/AdvReac Type Severity Reaction Status Date / Time
bee venom protein (honey bee) Allergy Unknown Verified 08/13/24 18:37
Penicillins Allergy Rash; Verified 08/13/24 18:37
previously
tolerated
cephalexin
Sulfa (Sulfonamide Allergy Rash Verified 08/13/24 18:37
Antibiotics)
Home Medications
aspirin 81 mg chewable tablet 81 mg PO QPM Blood Clot Prevention/Tx 04/09/21
atorvastatin 20 mg tablet 20 mg PO HS High Cholesterol 04/09/21
famotidine 20 mg tablet 20 mg PO HS Gastrointestinal Issue 04/09/21
vitamins A,C,P-yovz-jzkhrl 4,296 mcg-226 mg-90 mg capsule (PreserVision AREDS) 1 cap PO BID Supplement 04/09/21
alfuzosin 10 mg tablet,extended release 24 hr 10 mg PO DAILY Urinary Issue 10/29/22
cyanocobalamin (vitamin B-12) 1,000 mcg tablet (Vitamin B-12) 1,000 mcg PO Q48H Supplement 10/29/22
dorzolamide 22.3 mg-timolol 6.8 mg/mL eye drops 1 drp BOTH EYES BID Eye Condition 10/29/22
carvedilol 3.125 mg tablet 3.125 mg PO BID 12/04/24
cholecalciferol (vitamin D3) 125 mcg (5,000 unit) tablet 125 mcg PO DAILY 12/04/24
dexlansoprazole 60 mg capsule,biphase delayed release 60 mg PO DAILY 12/04/24
furosemide 20 mg tablet 20 mg PO DAILY 12/04/24
magnesium citrate 100 mg tablet 100 mg PO DAILY 12/04/24
spironolactone 25 mg tablet 25 mg PO DAILY 12/04/24
valsartan 320 mg tablet 160 mg PO DAILY 12/04/24
Review of Systems
-
Constitutional: Reports No Symptoms
EENT: Reports No Symptoms
Respiratory: Reports No Symptoms
Cardiac: Reports No Symptoms
Abdomen/GI: Reports No Symptoms
: Reports No Symptoms
Musculoskeletal: Reports No Symptoms
Skin: Reports No Symptoms
Neurological: Reports No Symptoms
Endocrine: Reports No Symptoms
Hematologic/Lymphatic: Reports No Symptoms
Psych: Reports No Symptoms
Physical Exam
Vital Signs
Vital Signs
Temp Pulse Resp BP Pulse Ox
105.1 F H 110 28 151/90 97
12/04/24 20:10 12/04/24 20:45 12/04/24 20:45 12/04/24 20:30 12/04/24 20:45
Physical Exam
General: Well Developed, Well Nourished and No Apparent Distress
HEENT: NormoCephalic, Moist mucous membranes and Atraumatic
Respiratory: Clear
Cardiac: S1/S2 and Regular Rhythm; No Murmur or Rub
GI: Soft, Non Tender, Non Distended and Normal Bowel Sounds; No Organomegaly
Rectal: Deferred by Provider
Musculoskeletal: No Clubbing, No Cyanosis and No Edema
Skin: No Rash
Neuro: Nonfocal/grossly intact
Laboratory Results
-
12/04/24 17:48
12/04/24 17:48
Laboratory Results
Lactic Acid 8.1 mmol/L (0.7-2.0) H* 12/04/24 17:48
Total Bilirubin 1.4 mg/dl (0.2-1.3) H 12/04/24 17:48
AST 239 U/L (17-59) H 12/04/24 17:48
ALT 91 U/L (0-50) H 12/04/24 17:48
Alkaline Phosphatase 249 U/L (38-126) H 12/04/24 17:48
Data Reviewed
-
Lab Data: Labs Reviewed by me
Old Records: Reviewed
Impression/Plan
-
IMPRESSION:
PLAN:
#SIRS (fever, tachycardia, tachypnea) rule out acute cholecystitis vs disseminated Lymes
-Lactic acid 8
-CT abdomen pelvis unremarkable
-Chest x-ray unremarkable
- Check blood cultures
- IV fluids
- Given vancomycin and cefepime/Flagyl, continue cefepime/doxycycline/Flagyl to cover acute cholecystitis and Lyme's disease
- Trend lactate
# Transaminitis secondary to acute cholecystitis versus Lyme's
- CT scan shows distended gallbladder
- Check abdominal ultrasound
- Hold statin
# Right lower extremity erythema migrans
-Classic bull's-eye appearance
- Lyme pending
History of gram-negative bacteremia secondary to diverticulitis
Essential hypertension
- Hold losartan
Hyperlipidemia
- Hold statin
GERD
- Continue PPI and Pepcid
Macular degeneration
- Continue drops
CAD
- Continue aspirin
- Hold statin
CKD
- Renal function at baseline
Chronic lower extreme edema
- Hold Lasix
History of diverticulosis
Hepatic steatosis
Anxiety
BPH
- Continue alfuzosin
Osteoarthritis
Full code
DVT prophylaxis�heparin
NPO
[2024-12-04] MEDS: VIBRAMYCIN 260 MG IV (23:15)
--- NOTE | 2024-12-04 23:30 | PTCARENOTE ---
Pt arrived to floor on stretcher from ED. Pulled over to bed without issue; Pt denies pain; Doxycycline infusing into RAC Int; AAO x 3; Placed on monitor, NSR; HR ~ 80's; Skin diaphoretic and cool to touch. Recently had been given tylenol for
fever, oral temp now ~ 98.6; Large bulls eye rash noted on R medial ankle - outlined with skin pen; CC#[address] to green bag draining clear yellow urine; Pt oriented to room, call shepard within reach. Will continue to monitor and assess.
[2024-12-05] VITALS (14 sets, daily range): BP systolic 85–123; BP diastolic 63–89
[2024-12-05] MEDS: FLAGYL 500 MG IV ×3 (00:11→00:12)
[2024-12-05] MEDS: VITAMIN C PO (00:12)
[2024-12-05] MEDS: NSS 1000 IV ×3 (00:12→23:50)
[2024-12-05] MEDS: PEPCID 20 MG PO ×2 (00:23→21:08)
[2024-12-05] MEDS: FLAGYL 500 MG 100 IV ×2 (04:03→12:57)
[2024-12-05 06:29] LABS: Hematocrit 30.5 % (39.0-52.0); Hemoglobin 10.3 g/dL (13.0-18.0); Mean Corp Hgb Conc. 33.8 g/dL (33.0-37.0); Mean Corpuscular Volume 86.2 fL (80.0-94.0); Nucleated Red Blood Cells % 0 % (-); Platelet Count 125 10^3/uL (130-400); Red Cell Dist. Width 15.2 % (11.5-14.5)
[2024-12-05 06:43] LABS: ALT (SGPT) 166 U/L (0-50); AST (SGOT) 209 U/L (17-59); Albumin 3.2 g/dl (3.5-5.0); Alkaline Phosphatase 257 U/L (38-126); Blood Urea Nitrogen 18 mg/dl (9-20); Calcium 7.9 mg/dl (8.4-10.2); Carbon Dioxide 19 mmol/L (22-30); Chloride 109 mmol/L (98-107); Estimated Creatinine Clearance 51 ml/min; Glucose 97 mg/dl (70-99); Potassium 4.0 mmol/L (3.5-5.1); Sodium 133 mmol/L (135-145); Total Protein 5.6 g/dl (6.3-8.2); eGFR > 60.00
[2024-12-05] MEDS: VITAMIN D3 (cholecalciferol) 125 MCG PO (08:45)
[2024-12-05] MEDS: PROTONIX 40 MG PO (08:45)
[2024-12-05] MEDS: OCUVITE SOFTGEL 1 CAP PO (08:45)
[2024-12-05] MEDS: FLOMAX 0.4 MG PO (08:46)
[2024-12-05] MEDS: STERILE WATER FOR INJECTION 10 ML IV ×3 (08:46→21:09)
[2024-12-05] MEDS: MAXIPIME 1000 MG IV ×3 (08:47→21:09)
[2024-12-05] MEDS: TRUSOPT 2% OPHTHALMIC SOLUTION 1 DROP BOTH EYES (08:48)
[2024-12-05] MEDS: TIMOPTIC 0.5% OPHTHALMIC SOLUTION 1 DROP BOTH EYES (08:48)
[2024-12-05] MEDS: NON-FORMULARY ITEM 1 DROP BOTH EYES ×3 (08:49→21:08)
--- NOTE | 2024-12-05 09:46 | CM ---
Alert awake oriented patient who lives with his Carmen in a 2 story home with stairglide to enter and one to go upstairs to bed and bathroom.. He is independent activities of daily living.Spoke with his .He uses cane.
No VN hx / No SNF history
Pharmacy [facility]
PCP DR Duran Deleon
PLAN will depend on hospital course of care
--- NOTE | 2024-12-05 09:55 | W.PN.HOSP.TC ---
Today's Communication/Plan
-
E. Coli in blood. primary source unclear.
cont abx
ID consult for abx mgmt
Assessment / Plan
Assessment / Plan
84M with history of gram-negative bacteremia secondary to diverticulitis, hypertension, hyperlipidemia, CAD, CKD, diverticulosis, hepatic steatosis, anxiety, presenting with abdominal pain diffusely starting 2 days ago. Found to have fever.
Sepsis bacteremia
(fever, tachycardia, tachypnea) ddx includes acute cholecystitis vs disseminated Lymes
-Lactic acid 8 --> 1 unclear if 8 was an error.
-CT abdomen pelvis unremarkable
-Chest x-ray unremarkable
notes nocturnal urinary frequency but UA (-) LE/nit, only 3 WBC, suspect that is from BPH.
- Blood cultures positive for GNB E.Coli /. Final c/s pending
- IV fluids
- Given vancomycin and cefepime/Flagyl, continue cefepime/doxycycline/Flagyl to cover acute cholecystitis and Lyme's disease
- ID consult
Transaminitis secondary to acute cholecystitis versus Lyme's
- CT scan shows distended gallbladder, Hepatic steatosis
- abdominal ultrasound shows it is physiologically distended with fluid, no calculi or wall thickening, negative pope's CBD normal.
Advance diet.
- Hold statin
Right lower extremity erythema migrans
-Classic bull's-eye appearance
- Lyme pending
History of gram-negative bacteremia secondary to diverticulitis
2021, herrera S
Essential hypertension
- Hold losartan. Bp controlled. Cont BB
Hyperlipidemia
- Hold statin
GERD
- Continue PPI and Pepcid
Macular degeneration
- Continue drops
CAD
- Continue aspirin
- Hold statin
CKD
- Renal function at baseline
Chronic lower extremity edema
- Hold Lasix
- no edema at present
BPH
- Continue alfuzosin
follows with urology
Osteoarthritis
Full code
DVT prophylaxis�heparin
Anticipated Discharge: 24 - 48 hours
Subjective/Interval History
-
Date of Service: December 05, 2024
Pt feeling well denies cp/sob/n/v/abd pain. RLE ankle lesion is not bothering him. Notes frequent nocturia at home, recently saw urologist who is observing.
Objective Data
-
Labs:
Laboratory Results
12/05/24
05:52
WBC 10.8
Hgb 10.3 L D
Hct 30.5 L
Plt Count 125 L D
Sodium 133 L
Potassium 4.0
Chloride 109 H
Carbon Dioxide 19 L
BUN 18
Creatinine 1.0
Glucose 97
Calcium 7.9 L
Total Bilirubin 1.3
AST 209 H
ALT 166 H
Alkaline Phosphatase 257 H
Vital Signs:
Vital Signs
Temp Pulse Resp BP Pulse Ox
97.7 F 67 16 114/85 99
12/05/24 07:08 12/05/24 06:00 12/05/24 06:00 12/05/24 06:00 12/05/24 06:00
I&O
12/04/24 12/05/24 12/06/24
06:59 06:59 06:59
Output Total 350 / 350
Balance -350 / -350
Review of Systems
-
All other systems: Reviewed and negative
Physical Exam
-
General: No Apparent Distress
HEENT: Moist Mucous Membranes, Anicteric and PERRLA
Respiratory: Clear to Auscultation; Negative Wheezes, Rales or Rhonchi
Cardiac: Regular Rhythm and S1/S2; Negative Murmur, Rub or Gallop
GI: Soft, Nontender, Nondistended and Normal Bowel Sounds
Musculoskeletal: No Edema
Skin: Warm, Dry, Rash (R ankle erythematous rash/lesion) and Lesions; Negative Ulcers
Neuro: Awake and AO x 3
Hematologic / Lymphatic: No Lymphadenopathy
Psych: Calm
[2024-12-05] MEDS: VIBRAMYCIN 260 MG IV (11:00)
--- NOTE | 2024-12-05 15:15 | CON.ID ---
Consultation
-
Date/Time Consultation Requested: 12/05/2024 1010
Date/Time Consultation Performed: 12/05/2024 1515
Requesting Provider: Dr. Merino
Performing Provider: Dr. Upton
Reason for Consultation: E. coli bacteremia
Chief Complaint / Past History
History of Present Illness
Kevin Alanis is an 84-year-old man with a significant past medical history of A-fib, diverticulitis being evaluated regarding E. coli bacteremia. History is obtained from chart review, along with patient interview. Additional history was
obtained from the patient's who is at the bedside.
The patient presented to [facility] on 12/04/2024 with complaints of abdominal pain and racing heart. The patient reports that he felt well earlier in the week, but then developed a general feeling of unwellness Th evening and he
went to bed early. The next day he developed more acute lower abdominal discomfort along with an episode of shakes and rigors and marked chills. Because of the symptoms, and a prior history of 'sepsis from diverticulitis' approximately 3 years ago
he presented to the hospital for further evaluation. Here he was found to be febrile, spiking a temperature to 105.1 degrees. Initial workup, though, did not reveal a leukocytosis. Blood cultures obtained at the time of admission are now positive
for E. coli and Infectious Diseases is asked to comment upon further antibiotic management.
At the present time, the patient reports feeling well. He denies any abdominal pain. He denies any dysuria, but does admit to chronic urinary frequency. He denies any hematuria. He denies any nausea, vomiting or diarrhea.
Past History
Additional Past Medical History:
A-fib
Diverticulitis
HTN
HLD
GERD
Nephrolithiasis
BPH
Fatty liver disease
Additional Past Surgical History:
Wrist fracture with repair
Cataract surgery
Rotator cuff surgery
Appendectomy
PCI with stenting
Allergy History:
bee venom protein (honey bee) Allergy (Verified 08/13/24 18:37)
Unknown
Penicillins Allergy (Verified 08/13/24 18:37)
Rash; previously tolerated cephalexin
Sulfa (Sulfonamide Antibiotics) Allergy (Verified 08/13/24 18:37)
Rash
Medications Reviewed: Yes
Current Antibiotics:
Cefepime 1 gm IV q.12 hours
Doxycycline 100 mg IV q.12 hours
Metronidazole 500 mg IV q.8 hours
Social History
Tobacco: Non-Smoker
Alcohol: Occasional
Drug: None
Personal:
Living: With Family
Employment: Retired
Family History
Family History: Not Pertinent
Review of Systems
Vital Signs
Temp Pulse Resp BP Pulse Ox
97.7 F 67 16 114/85 99
12/05/24 07:08 12/05/24 06:00 12/05/24 06:00 12/05/24 06:00 12/05/24 06:00
Physical Exam
Physical Exam
Constitutional: No Acute Distress, Comfortable and Non-toxic
Eyes: No Conjunctival Hemorrhage and Sclera Anicteric
Oral: No Thrush and No Ulcers
Cardiovascular: Regular Rate and S1/S2; Negative S3/S4 or Murmur
Pulmonary: Clear; Negative Wheezes, Rales or Rhonchi
Gastrointestinal: Soft, Non Tender, Distended, Normal Bowel Sounds, No Rebound and No Guarding
Genito-Urinary: Ramires and Clear Urine; Negative Turbid Urine or Hematuria
Extremities: Negative Edema, Cyanosis or Erythema
Musculoskeletal: Negative Joint Swelling or Joint Effusion
Neurological: Awake and Alert
Psychological: Calm
Lab / Diagnostic Study Results
12/05/24 05:52
12/05/24 05:52
Abs Immat Gran (auto) 0.0 10^3/uL (0-0.05) 12/05/24 05:52
Absolute Neuts (auto) 8.4 10^3/uL (1.4-6.5) H 12/05/24 05:52
Absolute Lymphs (auto) 1.1 10^3/uL (1.2-3.4) L 12/05/24 05:52
Absolute Monos (auto) 1.2 10^3/uL (0.1-0.6) H 12/05/24 05:52
Absolute Basos (auto) 0.0 10^3/uL (0-0.2) 12/05/24 05:52
Immature Gran % 0.4 % (0-0.5) 12/05/24 05:52
Neutrophils % 78.1 % (42.2-75.2) H 12/05/24 05:52
Lymphocytes % 10.5 % (20.5-51.1) L 12/05/24 05:52
Monocytes % 10.8 % (1.7-9.3) H 12/05/24 05:52
Eosinophils % 0.0 % (0-6) 12/05/24 05:52
Basophils % 0.2 % (0-2) 12/05/24 05:52
Lactic Acid 1.0 mmol/L (0.7-2.0) 12/04/24 23:10
Ur Squamous Epith Cells 0-2 /LPF (Few) 12/04/24 17:53
Microbiology Results
Micro:
12/04/24 17:48 Blood Culture - Preliminary
Blood/Venous Escherichia coli
Gram Stain - Preliminary
12/04/24 17:53 Blood Culture - Preliminary
Blood/Venous Positive culture in progress
Gram Stain - Preliminary
12/04/24 17:48 Influenza Types A & B (ADELINE) - Final
Nasal Swab Negative for Influenza A & B, NAAT
Negative results must be combined with clinical observations
and patient history.
Nucleic Acid Amplification test (NAAT)performed on the
[employer] platform.
Imaging:
12/04/2024 Abdominal ultrasound: no findings to confirm cholelithiasis, gallbladder wall thickening or biliary tract dilatation. Fatty infiltration suggested. Please see full dictation for additional detail.
12/04/2024 CT abdomen/pelvis with IV contrast: no CT evidence for an acute inflammatory process in the abdomen or pelvis.
Assessment / Plan
E. coli bacteremia
- Source unclear. ?GB ?Ascending cholangitis ?Diverticulitis ?other ?UTI
Normal white count with left shift
Anemia
Thrombocytopenia
Elevated LFTs
Right ankle rash; not consistent with Lyme disease
A-fib
Diverticulitis
HTN
HLD
GERD
Nephrolithiasis
BPH
Fatty liver disease
Recommendations:
Continue with cefepime. Increase to 1 gm IV q.6 hours
Discontinue further metronidazole and doxycycline.
Repeat blood cultures.
Await full susceptibility data on current blood cultures.
Follow white count and temperature curve.
Further recommendations as additional data is returned.
[2024-12-05] MEDS: LOW STRENGTH ASPIRIN 81 MG PO (16:45)
[2024-12-05] MEDS: LOVENOX 40 MG SC (16:45)
[2024-12-05] MEDS: TYLENOL 650 MG PO (20:10)
[2024-12-05] MEDS: TRUSOPT 2% OPHTHALMIC SOLUTION BOTH EYES ×2 (21:07→21:15)
[2024-12-05] MEDS: TIMOPTIC 0.5% OPHTHALMIC SOLUTION BOTH EYES ×2 (21:08→21:15)
--- NOTE | 2024-12-05 23:55 | PTCARENOTE ---
Addendum entered by Melody Agarwal RN 12/06/24 00:05:
Pt making this RN aware that 2 out of the 3 eye drops Pt is ordered he has had reactions to in the past. will be bringing in updated med list tomorrow. Eye drops Pt refused disposed of, will pass on to day shift and night WRITING MANAGER.
Original Note:
Pt AAOx3 able to make needs known. Pt tolerating sitting on side of bed and standing. Pt oob x1 to bathroom with cane, Pt tolerating well. Pt having complaints of general aches and pain, Tylenol given per order. Reassessment Pt stating he found some
relief. Assessment care and vitals as charted.
[2024-12-06] VITALS (16 sets, daily range): BP systolic 109–167; BP diastolic 62–103; PULSE 67; O2SAT 97
[2024-12-06] MEDS: DESYREL 25 MG PO ×2 (02:46→21:31)
--- NOTE | 2024-12-06 02:50 | PTCARENOTE ---
Pt informing RN that he cannot sleep. Pt stating he 'drinks 2 glasses of wine a night to help fall a sleep' or takes 'Benadryl'. Night shidt SHOWCASE TRIMMER made aware of situation, trazodone ordered in hopes it helps Pt sleep. Pt agreed with plan.
[2024-12-06] MEDS: MAXIPIME 1000 MG IV ×3 (04:07→17:50)
[2024-12-06] MEDS: STERILE WATER FOR INJECTION 10 ML IV ×3 (04:08→17:50)
[2024-12-06 04:30] LABS: Hematocrit 32.4 % (39.0-52.0); Hemoglobin 11.1 g/dL (13.0-18.0); Mean Corp Hgb Conc. 34.3 g/dL (33.0-37.0); Mean Corpuscular Volume 87.8 fL (80.0-94.0); Nucleated Red Blood Cells % 0 % (-); Platelet Count 112 10^3/uL (130-400); Red Cell Dist. Width 15.8 % (11.5-14.5)
[2024-12-06 05:05] LABS: Blood Urea Nitrogen 19 mg/dl (9-20); Calcium 8.3 mg/dl (8.4-10.2); Carbon Dioxide 19 mmol/L (22-30); Chloride 111 mmol/L (98-107); Estimated Creatinine Clearance 57 ml/min; Glucose 85 mg/dl (70-99); Potassium 3.9 mmol/L (3.5-5.1); Sodium 136 mmol/L (135-145); eGFR > 60.00
--- NOTE | 2024-12-06 08:33 | W.PN.ID1 ---
Date of Service
Date of Service: December 06, 2024
Today's Communication
Continue cefepime. See below�
Assessment / Plan
E. coli bacteremia
- Source unclear. ?GB ?Ascending cholangitis ?Diverticulitis ?other ?UTI
Normal white count with left shift
- improved
Anemia
Thrombocytopenia
Elevated LFTs
Right ankle rash
- not consistent with Lyme disease
A-fib
Diverticulitis
HTN
HLD
GERD
Nephrolithiasis
BPH
Fatty liver disease
Recommendations:
Continue with cefepime.
Repeat blood cultures : pending.
Await full susceptibility data on current blood cultures.
Follow white count and temperature curve.
Trend LFT's
Further recommendations as additional data is returned.
Chief Complaint
-: Bacteremia
Subjective / Review of Systems
Patient seen and examined. Reports of some generalized, diffuse abdominal discomfort, but not overt pain. Denies dysuria.
Vital Signs / Physical Exam
Vital Signs
Vital Signs
Temp Pulse Resp BP Pulse Ox
97.8 F 66 22 148/89 96
12/06/24 04:05 12/06/24 08:00 12/06/24 08:00 12/06/24 08:00 12/06/24 08:00
Physical Exam
Constitutional: No Acute Distress, Comfortable and Non-toxic
Eyes: No Conjunctival Hemorrhage and Sclera Anicteric
Cardiovascular: S1/S2; Negative S3/S4
Pulmonary: Non Labored
Gastrointestinal: Soft, Tender (Diffuse; minimal), Non Distended, Normal Bowel Sounds, No Rebound and No Guarding
Extremities: Negative Edema or Cyanosis
Neurological: Awake and Alert
Psychological: Calm
Objective Data
Lab Data
Lab Results
12/06/24 04:18
12/06/24 04:18
Estimated Creat Clear 57 ml/min 12/06/24 04:18
Lactic Acid 1.0 mmol/L (0.7-2.0) 12/04/24 23:10
Total Bilirubin 1.3 mg/dl (0.2-1.3) 12/05/24 05:52
AST 209 U/L (17-59) H 12/05/24 05:52
ALT 166 U/L (0-50) H 12/05/24 05:52
Alkaline Phosphatase 257 U/L (38-126) H 12/05/24 05:52
Most recent labs reviewed.
Micro Results:
12/05/24 20:32 Blood Culture - Pending
Blood/Venous
12/05/24 18:33 Blood Culture - Pending
Blood/Venous
12/04/24 17:48 Blood Culture - Preliminary
Blood/Venous Escherichia coli
Gram Stain - Preliminary
12/04/24 17:53 Blood Culture - Preliminary
Blood/Venous Positive culture in progress
Gram Stain - gram-negative rods
12/04/24 17:48 Influenza Types A & B (ADELINE) - Final
Nasal Swab Negative for Influenza A & B, NAAT
Negative results must be combined with clinical observations
and patient history.
Nucleic Acid Amplification test (NAAT)performed on the
[employer] platform.
Imaging:
12/04/2024 Abdominal ultrasound: no findings to confirm cholelithiasis, gallbladder wall thickening or biliary tract dilatation. Fatty infiltration suggested. Please see full dictation for additional detail.
12/04/2024 CT abdomen/pelvis with IV contrast: no CT evidence for an acute inflammatory process in the abdomen or pelvis.
[2024-12-06] MEDS: VITAMIN C PO (09:52)
[2024-12-06] MEDS: PROTONIX 40 MG PO (09:52)
[2024-12-06] MEDS: OCUVITE SOFTGEL 1 CAP PO (09:52)
[2024-12-06] MEDS: FLOMAX 0.4 MG PO (09:53)
[2024-12-06] MEDS: VITAMIN D3 (cholecalciferol) 125 MCG PO (09:53)
[2024-12-06] MEDS: NON-FORMULARY ITEM 1 DROP BOTH EYES ×3 (09:54→21:26)
[2024-12-06] MEDS: TRUSOPT 2% OPHTHALMIC SOLUTION BOTH EYES ×2 (09:54→21:25)
[2024-12-06] MEDS: TIMOPTIC 0.5% OPHTHALMIC SOLUTION BOTH EYES ×2 (09:54→21:25)
[2024-12-06] MEDS: NSS 1000 IV (09:55)
[2024-12-06] MEDS: DIOVAN 320 MG PO (12:00)
[2024-12-06 13:00] LABS: ALT (SGPT) 132 U/L (0-50); AST (SGOT) 112 U/L (17-59); Albumin 3.3 g/dl (3.5-5.0); Alkaline Phosphatase 249 U/L (38-126); Total Protein 5.8 g/dl (6.3-8.2)
--- NOTE | 2024-12-06 13:14 | W.PN.HOSP.TC ---
Today's Communication/Plan
-
Monitor vital signs and see plan
Restart valsartan
Continue with antibiotics
If symptoms do not improve then likely will need CT abdomen/pelvis with p.o. contrast
Bladder scan
Follow cultures
Transfer out of IMU
Assessment / Plan
Assessment / Plan
84M with history of gram-negative bacteremia secondary to diverticulitis, hypertension, hyperlipidemia, CAD, CKD, diverticulosis, hepatic steatosis, anxiety, presenting with abdominal pain diffusely starting 2 days ago. Found to have fever.
Severe Sepsis 2/2 ecoli bacteremia
-Lactic acid 8 --> 1 unclear if 8 was an error.
-CT abdomen pelvis unremarkable
-Chest x-ray unremarkable
notes nocturnal urinary frequency but UA (-) LE/nit, only 3 WBC, suspect that is from BPH.
- Blood cultures positive for GNB E.Coli 2/. Final c/s pending
cw abx per ID
- ID following
If symptoms do not improve then will likely need CT abdomen/pelvis with p.o. contrast
Transaminitis
- abdominal ultrasound shows it is physiologically distended with fluid, no calculi or wall thickening, negative pope's CBD normal.
Advance diet.
- Hold statin
Does have fatty liver on ultrasound
Right lower extremity erythema migrans
-Classic bull's-eye appearance
- Lyme pending
History of gram-negative bacteremia secondary to diverticulitis in past
2021, herrera S
Essential hypertension
Restart valsartan
Hyperlipidemia
- Hold statin
GERD
- Continue PPI and Pepcid
Macular degeneration
- Continue drops
CAD
- Continue aspirin
- Hold statin
CKD
- Renal function at baseline
Chronic lower extremity edema
- Hold Lasix
- no edema at present
BPH
- Continue alfuzosin
follows with urology
Osteoarthritis
Full code
DVT prophylaxis�lovenox
General: No Apparent Distress
HEENT: Moist Mucous Membranes, Anicteric and PERRLA
Respiratory: Clear to Auscultation; Negative Wheezes, Rales or Rhonchi
Cardiac: Regular Rhythm and S1/S2; Negative Murmur, Rub or Gallop
GI: Soft, Nontender, Nondistended and Normal Bowel Sounds
Musculoskeletal: No Edema
Skin: Warm, Dry, Rash (R ankle erythematous rash/lesion) and Lesions; Negative Ulcers
Neuro: Awake and AO x 3
Psych: Calm
Anticipated Discharge: > 48 hours
Subjective/Interval History
-
Date of Service: December 06, 2024
Has some discomfort
Objective Data
-
Labs:
Laboratory Results
12/06/24 12/06/24
04:18 09:41
WBC 8.1
Hgb 11.1 L
Hct 32.4 L
Plt Count 112 L
Sodium 136
Potassium 3.9
Chloride 111 H
Carbon Dioxide 19 L
BUN 19
Creatinine 0.9
Glucose 85
Calcium 8.3 L
Total Bilirubin 0.8 Cancelled
AST 112 H Cancelled
ALT 132 H Cancelled
Alkaline Phosphatase 249 H Cancelled
Vital Signs:
Vital Signs
Temp Pulse Resp BP Pulse Ox
97.5 F 62 22 163/96 96
12/06/24 07:30 12/06/24 12:00 12/06/24 12:00 12/06/24 12:00 12/06/24 08:00
I&O
12/05/24 12/06/24 12/07/24
06:59 06:59 06:59
Intake Total 2540 / 2540 400 / 400
Output Total 350 / 350 1050 / 1050 250 / 250
Balance -350 / -350 1490 / 1490 150 / 150
[2024-12-06] MEDS: TYLENOL 650 MG PO (15:39)
--- NOTE | 2024-12-06 15:59 | CM ---
F/U: PT/OT has not made a recommendation yet, it is Home PT vs. Outpatient so patient will be evaluated again. PLAN: Home PT/ vs. Outpatient.
--- NOTE | 2024-12-06 16:01 | PTCARENOTE ---
Patient AOx3. B/L [place]. On RA with SpO2 greater than 92%. NSR with PAC's and BBB on monitor. BP elevated. MD aware. PRN hydralazine ordered. Assist x1 when OOB. C/O of B/L lower abdomen pain. PRN Tylenol given per APR. Patient stated that abd pain is
better after eating. Bladder scanned per MD order for 85. Call shepard within reach, bed in lowest position, and bed of wheels locked.
[2024-12-06 16:07] LABS: Lyme Antibody Screen, EIA Negative (Negative)
[2024-12-06] MEDS: LOVENOX 40 MG SC (17:50)
[2024-12-06] MEDS: LOW STRENGTH ASPIRIN 81 MG PO (17:50)
--- NOTE | 2024-12-06 18:11 | PTCARENOTE ---
Verbal report given to Daphne HIGHTOWER. Patient transferred to by PCT via wheelchair. Patient belongings transferred with patient. VSS.
[2024-12-06] MEDS: PEPCID 20 MG PO (21:26)
[2024-12-07] VITALS (8 sets, daily range): BP systolic 143–166; BP diastolic 84–103
[2024-12-07] MEDS: MAXIPIME 1000 MG IV ×2 (02:37→09:23)
[2024-12-07] MEDS: STERILE WATER FOR INJECTION 10 ML IV ×2 (02:37→09:23)
[2024-12-07 07:34] LABS: Hematocrit 31.0 % (39.0-52.0); Hemoglobin 10.5 g/dL (13.0-18.0); Mean Corp Hgb Conc. 33.9 g/dL (33.0-37.0); Mean Corpuscular Volume 86.4 fL (80.0-94.0); Nucleated Red Blood Cells % 0 % (-); Platelet Count 147 10^3/uL (130-400); Red Cell Dist. Width 15.5 % (11.5-14.5)
[2024-12-07 07:55] LABS: ALT (SGPT) 100 U/L (0-50); AST (SGOT) 63 U/L (17-59); Albumin 3.4 g/dl (3.5-5.0); Alkaline Phosphatase 222 U/L (38-126); Blood Urea Nitrogen 14 mg/dl (9-20); Calcium 8.8 mg/dl (8.4-10.2); Carbon Dioxide 20 mmol/L (22-30); Chloride 109 mmol/L (98-107); Estimated Creatinine Clearance 57 ml/min; Glucose 80 mg/dl (70-99); Potassium 3.9 mmol/L (3.5-5.1); Sodium 135 mmol/L (135-145); Total Protein 5.8 g/dl (6.3-8.2); eGFR > 60.00
[2024-12-07] MEDS: NON-FORMULARY ITEM 1 DROP BOTH EYES ×3 (09:18→21:01)
[2024-12-07] MEDS: DIOVAN 320 MG PO (09:19)
[2024-12-07] MEDS: PROTONIX 40 MG PO (09:19)
[2024-12-07] MEDS: OCUVITE SOFTGEL 1 CAP PO (09:19)
[2024-12-07] MEDS: FLOMAX 0.4 MG PO (09:19)
[2024-12-07] MEDS: TRUSOPT 2% OPHTHALMIC SOLUTION BOTH EYES ×2 (09:20→21:04)
[2024-12-07] MEDS: VITAMIN D3 (cholecalciferol) 125 MCG PO (09:20)
[2024-12-07] MEDS: TIMOPTIC 0.5% OPHTHALMIC SOLUTION BOTH EYES ×2 (09:20→21:04)
[2024-12-07] MEDS: TYLENOL 650 MG PO (09:30)
--- NOTE | 2024-12-07 12:19 | W.PN.HOSP.TC ---
Today's Communication/Plan
-
monitor vitals
see plan
cw abx
follow cx
Assessment / Plan
Assessment / Plan
84M with history of gram-negative bacteremia secondary to diverticulitis, hypertension, hyperlipidemia, CAD, CKD, diverticulosis, hepatic steatosis, anxiety, presenting with abdominal pain diffusely starting 2 days ago. Found to have fever.
Severe Sepsis 2/2 ecoli bacteremia
-Lactic acid 8 --> 1 unclear if 8 was an error.
-CT abdomen pelvis unremarkable
-Chest x-ray unremarkable
notes nocturnal urinary frequency but UA (-) LE/nit, only 3 WBC, suspect that is from BPH.
- Blood cultures positive for GNB E.Coli 2/. latest bcx NGTD
cw abx per ID
- ID following
If symptoms do not improve then will likely need CT abdomen/pelvis with p.o. contrast
Transaminitis
- abdominal ultrasound shows it is physiologically distended with fluid, no calculi or wall thickening, negative pope's CBD normal.
Advanced diet.
- Hold statin
Does have fatty liver on ultrasound
Right lower extremity erythema migrans
-Classic bull's-eye appearance
- Lyme neg
History of gram-negative bacteremia secondary to diverticulitis in past
2021, herrera S
Essential hypertension
Restart valsartan
Hyperlipidemia
- Hold statin
GERD
- Continue PPI and Pepcid
Macular degeneration
- Continue drops
CAD
- Continue aspirin
- Hold statin
CKD
- Renal function at baseline
Chronic lower extremity edema
- Hold Lasix
- no edema at present
BPH
- Continue alfuzosin
follows with urology
Osteoarthritis
Full code
DVT prophylaxis�lovenox
General: No Apparent Distress
HEENT: Moist Mucous Membranes, Anicteric and PERRLA
Respiratory: Clear to Auscultation; Negative Wheezes, Rales or Rhonchi
Cardiac: Regular Rhythm and S1/S2; Negative Murmur, Rub or Gallop
GI: Soft, Nontender, Nondistended and Normal Bowel Sounds
Musculoskeletal: No Edema
Skin: Warm, Dry, Rash (R ankle erythematous rash/lesion) and Lesions; Negative Ulcers
Neuro: Awake and AO x 3
Psych: Calm
Anticipated Discharge: Within 24 hours
Subjective/Interval History
-
Date of Service: December 07, 2024
denies nausea
Objective Data
-
Labs:
Laboratory Results
12/07/24
06:56
WBC 6.6
Hgb 10.5 L
Hct 31.0 L
Plt Count 147 D
Sodium 135
Potassium 3.9
Chloride 109 H
Carbon Dioxide 20 L
BUN 14
Creatinine 0.9
Glucose 80
Calcium 8.8
Total Bilirubin 0.7
AST 63 H
ALT 100 H
Alkaline Phosphatase 222 H
Vital Signs:
Vital Signs
Temp Pulse Resp BP Pulse Ox
98.2 F 70 18 151/94 96
12/07/24 11:00 12/07/24 11:00 12/07/24 11:00 12/07/24 11:00 12/07/24 11:00
I&O
12/06/24 12/07/24 12/08/24
06:59 06:59 06:59
Intake Total 2540 / 2540 1840 / 1840
Output Total 1050 / 1050 1675 / 1675
Balance 1490 / 1490 165 / 165
--- NOTE | 2024-12-07 12:57 | PN.CDI ---
CDI
- -
CDI:
Physician Documentation Request
Admit Date: 12/04/24 21:20
Dear Doctor Som,
Please review the following and provide your response in the progress notes.
Clinical Indicators:
- Progress notes indicate pmh CKD
- 'Renal function at baseline'
- 12/04 2.4L IVF given
- Labs:
Laboratory Tests
12/04/24 12/05/24 12/07/24
17:48 05:52 06:56
Creatinine 1.3 1.0 0.9
eGFR 53.84 > 60.00 > 60.00
Please clarify which of the following accurately represents the patient's renal status:
WINSOME on CKD 2
CKD 2
Other (please specify)
Criteria for WINSOME*
1 Increase in serum creatinine by > or = to 0.3 mg/dL (> or = to 26.5 micromol/L) within 48 hours, OR
2 Increase in serum creatinine to > or = to 1.5 times baseline, which is known or presumed to have occurred within 7 days, OR
3 Urine volume < 0.5 nL/kg/hour for six hours
Stages of Chronic Kidney Disease*
Level Description GFR
G1 Normal or High >90
G2 Mildly decreased 60-89
G3a Mildly to moderately decreased 45-59
G3b Moderately to severely decreased 30-44
G4 Severely decreased 15-29
G5 Kidney failure <15
Use of terms such as suspected, likely, concern for, or probable (associated with a specific diagnosis that is being evaluated, monitored, or treated as if it exists) are acceptable and can be coded in the inpatient setting, when documented at the
time of discharge.
Thank you,
Ana Hawk RN
CDI Specialist
Please use your independent medical judgment in providing your response.
*Source: Kidney Disease: Improving Global Outcomes (KDIGO) 2012
--- NOTE | 2024-12-07 13:27 | W.PN.ID1 ---
Date of Service
Date of Service: December 07, 2024
Today's Communication
Continue antibiotics. See below�
Assessment / Plan
E. coli bacteremia
- Source unclear. ?GB ?Ascending cholangitis ?Diverticulitis ?other ?UTI
Normal white count with left shift
- improved
Anemia
Thrombocytopenia
Elevated LFTs
Right ankle rash
- not consistent with Lyme disease
A-fib
Diverticulitis
HTN
HLD
GERD
Nephrolithiasis
BPH
Fatty liver disease
Recommendations:
Continue with antibiotics. Transition to cefazolin.
Repeat blood cultures NGTD
Follow white count and temperature curve.
Trend LFT's
If patient remains clinically stable, at D/C transition to oral cephalexin 500 mg QID, to continue through 12/17.
Chief Complaint
-: Bacteremia
Subjective / Review of Systems
Review of Systems: No Fever, No Chills and No Abdominal Pain
Vital Signs / Physical Exam
Vital Signs
Vital Signs
Temp Pulse Resp BP Pulse Ox
98.2 F 70 18 151/94 96
12/07/24 11:00 12/07/24 11:00 12/07/24 11:00 12/07/24 11:00 12/07/24 11:00
Physical Exam
Constitutional: No Acute Distress, Comfortable and Non-toxic
Eyes: No Conjunctival Hemorrhage and Sclera Anicteric
Cardiovascular: S1/S2; Negative S3/S4
Pulmonary: Non Labored
Gastrointestinal: Soft, Tender (Diffuse; minimal), Non Distended, Normal Bowel Sounds, No Rebound and No Guarding
Extremities: Negative Edema or Cyanosis
Neurological: Awake and Alert
Psychological: Calm
Objective Data
Lab Data
Lab Results
12/07/24 06:56
12/07/24 06:56
Estimated Creat Clear 57 ml/min 12/07/24 06:56
Lactic Acid 1.0 mmol/L (0.7-2.0) 12/04/24 23:10
Total Bilirubin 0.7 mg/dl (0.2-1.3) 12/07/24 06:56
AST 63 U/L (17-59) H 12/07/24 06:56
ALT 100 U/L (0-50) H 12/07/24 06:56
Alkaline Phosphatase 222 U/L (38-126) H 12/07/24 06:56
Most recent labs reviewed.
Micro Results:
12/04/24 17:53 Blood Culture - Final
Blood/Venous Escherichia coli
Gram Stain - Final
12/04/24 17:48 Blood Culture - Final
Blood/Venous Escherichia coli
Gram Stain - Final
12/05/24 20:32 Blood Culture - Preliminary
Blood/Venous No Growth in 24 hours- Final report to follow
12/05/24 18:33 Blood Culture - Preliminary
Blood/Venous No Growth in 24 hours- Final report to follow
12/04/24 17:48 Influenza Types A & B (ADELINE) - Final
Nasal Swab Negative for Influenza A & B, NAAT
Negative results must be combined with clinical observations
and patient history.
Nucleic Acid Amplification test (NAAT)performed on the
[employer] platform.
Blood Culture Final 12/04/24
Positive for Escherichia coli.
Performed by [employer] PCR methodology.
Organism 1 Escherichia coli
1. Escherichia coli
M.I.C. RX
--------- ---
Amoxicillin/Potas. Clavulanate <=8/4 S
Ampicillin <=8 S
Ampicillin/Sulbactam <=4/2 S
Aztreonam <=4 S
Cefazolin <=2 S
Ertapenem <=0.5 S
Ciprofloxacin <=0.25 S
Gentamicin <=2 S
Meropenem <=1 S
Piperacillin/Tazobactam <=8 S
Tetracycline <=4 S
Tobramycin <=2 S
Trimethoprim/Sulfamethoxazole <=2/38 S
Imaging:
12/04/2024 Abdominal ultrasound: no findings to confirm cholelithiasis, gallbladder wall thickening or biliary tract dilatation. Fatty infiltration suggested. Please see full dictation for additional detail.
12/04/2024 CT abdomen/pelvis with IV contrast: no CT evidence for an acute inflammatory process in the abdomen or pelvis.
[2024-12-07] MEDS: ANCEF 10 IV ×2 (13:52→21:02)
[2024-12-07] MEDS: LOVENOX 40 MG SC (17:09)
[2024-12-07] MEDS: LOW STRENGTH ASPIRIN 81 MG PO (17:09)
[2024-12-07] MEDS: APRESOLINE 5 MG IV (17:13)
[2024-12-07] MEDS: DESYREL 25 MG PO (21:02)
[2024-12-07] MEDS: PEPCID 20 MG PO (21:02)
[2024-12-08] MEDS: TYLENOL 650 MG PO ×3 (00:46→09:27)
[2024-12-08 03:33] VITALS: BP 169/98
--- NOTE | 2024-12-08 03:46 | DOWNTIME ---
There was a [employer] Client Pres[employer] Associate Teacher Downtime on 12/08/2024 from 0100 to 12/08/2024 at 0215. Downtime documentation of patient's care, including medication administrations, has been reconciled in the electronic record per guidelines. Refer to the
patient's paper chart under the miscellaneous tab to see printed paper medication records and downtime forms.
[2024-12-08] MEDS: APRESOLINE 5 MG IV (04:30)
[2024-12-08] MEDS: ANCEF 10 IV (05:45)
[2024-12-08 05:55] VITALS: BP 160/100
[2024-12-08 07:00] VITALS: BP 158/94
[2024-12-08 08:32] LABS: Hematocrit 33.4 % (39.0-52.0); Hemoglobin 11.3 g/dL (13.0-18.0); Mean Corp Hgb Conc. 33.8 g/dL (33.0-37.0); Mean Corpuscular Volume 87.7 fL (80.0-94.0); Nucleated Red Blood Cells % 0 % (-); Platelet Count 184 10^3/uL (130-400); Red Cell Dist. Width 15.4 % (11.5-14.5)
[2024-12-08] MEDS: VITAMIN C 1000 MG PO (09:11)
[2024-12-08] MEDS: PROTONIX 40 MG PO (09:11)
[2024-12-08] MEDS: DIOVAN 320 MG PO (09:11)
[2024-12-08] MEDS: NON-FORMULARY ITEM 1 DROP BOTH EYES (09:12)
[2024-12-08] MEDS: VITAMIN D3 (cholecalciferol) 125 MCG PO (09:12)
[2024-12-08] MEDS: FLOMAX 0.4 MG PO (09:12)
[2024-12-08 09:18] LABS: ALT (SGPT) 76 U/L (0-50); AST (SGOT) 48 U/L (17-59); Albumin 3.8 g/dl (3.5-5.0); Alkaline Phosphatase 225 U/L (38-126); Blood Urea Nitrogen 13 mg/dl (9-20); Calcium 9.2 mg/dl (8.4-10.2); Carbon Dioxide 23 mmol/L (22-30); Chloride 104 mmol/L (98-107); Estimated Creatinine Clearance 57 ml/min; Glucose 93 mg/dl (70-99); Potassium 3.5 mmol/L (3.5-5.1); Sodium 136 mmol/L (135-145); Total Protein 6.3 g/dl (6.3-8.2); eGFR > 60.00
[2024-12-08] MEDS: TRUSOPT 2% OPHTHALMIC SOLUTION BOTH EYES (09:28)
[2024-12-08] MEDS: OCUVITE SOFTGEL 1 CAP PO (09:28)
[2024-12-08] MEDS: TIMOPTIC 0.5% OPHTHALMIC SOLUTION BOTH EYES (09:28)
[2024-12-08 11:00] VITALS: BP 152/92
--- NOTE | 2024-12-08 11:19 | W.PN.ID1 ---
Date of Service
Date of Service: December 08, 2024
Today's Communication
Continue antibiotics. See below�
Assessment / Plan
E. coli bacteremia
- Source unclear. ?GB ?Ascending cholangitis ?Diverticulitis ?other ?UTI
Normal white count with left shift
- improved
Anemia
Thrombocytopenia
Elevated LFTs
Right ankle rash
- not consistent with Lyme disease
A-fib
Diverticulitis
HTN
HLD
GERD
Nephrolithiasis
BPH
Fatty liver disease
Recommendations:
Repeat blood cultures negative.
Currently cefazolin 2 gm IV q.8 hours (d#5)
--> At D/C, transition to oral cephalexin 500 mg QID, to continue through 12/17.
����������������������������������������������������������
Chief Complaint
-: Bacteremia
Subjective / Review of Systems
Review of Systems: No Fever, No Chills and No Abdominal Pain
Vital Signs / Physical Exam
Vital Signs
Vital Signs
Temp Pulse Resp BP Pulse Ox
98.0 F 71 16 158/94 98
12/08/24 07:00 12/08/24 09:11 12/08/24 07:00 12/08/24 09:11 12/08/24 07:00
Physical Exam
Constitutional: No Acute Distress, Comfortable and Non-toxic
Eyes: No Conjunctival Hemorrhage and Sclera Anicteric
Cardiovascular: S1/S2; Negative S3/S4
Pulmonary: Non Labored
Gastrointestinal: Soft, Tender (Diffuse; minimal), Non Distended, Normal Bowel Sounds, No Rebound and No Guarding
Extremities: Negative Edema or Cyanosis
Neurological: Awake and Alert
Psychological: Calm
Objective Data
Lab Data
Lab Results
12/08/24 07:06
12/08/24 07:06
Estimated Creat Clear 57 ml/min 12/08/24 07:06
Lactic Acid 1.0 mmol/L (0.7-2.0) 12/04/24 23:10
Total Bilirubin 0.6 mg/dl (0.2-1.3) 12/08/24 07:06
AST 48 U/L (17-59) 12/08/24 07:06
ALT 76 U/L (0-50) H 12/08/24 07:06
Alkaline Phosphatase 225 U/L (38-126) H 12/08/24 07:06
Most recent labs reviewed.
Micro Results:
12/05/24 20:32 Blood Culture - Preliminary
Blood/Venous No Growth in 48 hours- Final report to follow
12/05/24 18:33 Blood Culture - Preliminary
Blood/Venous No Growth in 48 hours- Final report to follow
12/04/24 17:53 Blood Culture - Final
Blood/Venous Escherichia coli
Gram Stain - Final
12/04/24 17:48 Blood Culture - Final
Blood/Venous Escherichia coli
Gram Stain - Final
12/04/24 17:48 Influenza Types A & B (ADELINE) - Final
Nasal Swab Negative for Influenza A & B, NAAT
Negative results must be combined with clinical observations
and patient history.
Nucleic Acid Amplification test (NAAT)performed on the
[employer] platform.
Blood Culture Final 12/04/24
Positive for Escherichia coli.
Performed by [employer] PCR methodology.
Organism 1 Escherichia coli
1. Escherichia coli
M.I.C. RX
--------- ---
Amoxicillin/Potas. Clavulanate <=8/4 S
Ampicillin <=8 S
Ampicillin/Sulbactam <=4/2 S
Aztreonam <=4 S
Cefazolin <=2 S
Ertapenem <=0.5 S
Ciprofloxacin <=0.25 S
Gentamicin <=2 S
Meropenem <=1 S
Piperacillin/Tazobactam <=8 S
Tetracycline <=4 S
Tobramycin <=2 S
Trimethoprim/Sulfamethoxazole <=2/38 S
Imaging:
12/04/2024 Abdominal ultrasound: no findings to confirm cholelithiasis, gallbladder wall thickening or biliary tract dilatation. Fatty infiltration suggested. Please see full dictation for additional detail.
12/04/2024 CT abdomen/pelvis with IV contrast: no CT evidence for an acute inflammatory process in the abdomen or pelvis.
--- NOTE | 2024-12-08 11:54 | W.PN.HOSP.TC ---
Today's Communication/Plan
-
monitor vitals
see plan
ID following, can be transition to oral antibiotic
Discharge today
Time of discharge 37 minutes
Assessment / Plan
Assessment / Plan
84M with history of gram-negative bacteremia secondary to diverticulitis, hypertension, hyperlipidemia, CAD, CKD, diverticulosis, hepatic steatosis, anxiety, presenting with abdominal pain diffusely starting 2 days ago. Found to have fever.
Severe Sepsis 2/2 ecoli bacteremia
-Lactic acid 8 --> 1 unclear if 8 was an error.
-CT abdomen pelvis unremarkable
-Chest x-ray unremarkable
notes nocturnal urinary frequency but UA (-) LE/nit, only 3 WBC, suspect that is from BPH.
- Blood cultures positive for GNB E.Coli 03/21. latest bcx NGTD
cw abx per ID
- ID following; transition to oral cephalexin 500 mg QID, to continue through 12/17
If symptoms do not improve then will likely need CT abdomen/pelvis with p.o. contrast
Transaminitis
- abdominal ultrasound shows it is physiologically distended with fluid, no calculi or wall thickening, negative pope's CBD normal.
Advanced diet.
-Restart statin
Does have fatty liver on ultrasound
Right lower extremity rash
- Lyme neg
History of gram-negative bacteremia secondary to diverticulitis in past
2021, herrera S
Essential hypertension
Restart valsartan
Hyperlipidemia
- statin
GERD
- Continue PPI and Pepcid
Macular degeneration
- Continue drops
CAD
- Continue aspirin
- Hold statin
Suspected renal insufficiency
History of CKD
- Renal function at baseline
Chronic lower extremity edema
- Restart Lasix on discharge
- no edema at present
BPH
- Continue alfuzosin
follows with urology
Osteoarthritis
Full code
DVT prophylaxis�lovenox
General: No Apparent Distress
HEENT: Moist Mucous Membranes, Anicteric and PERRLA
Respiratory: Clear to Auscultation; Negative Wheezes, Rales or Rhonchi
Cardiac: Regular Rhythm and S1/S2; Negative Murmur, Rub or Gallop
GI: Soft, Nontender, Nondistended and Normal Bowel Sounds
Musculoskeletal: No Edema
Skin: Warm, Dry, Rash (R ankle erythematous rash/lesion) and Lesions; Negative Ulcers
Neuro: Awake and AO x 3
Psych: Calm
Anticipated Discharge: Today
Subjective/Interval History
-
Date of Service: December 08, 2024
denies nausea
Objective Data
-
Labs:
Laboratory Results
12/08/24
07:06
WBC 5.5
Hgb 11.3 L
Hct 33.4 L
Plt Count 184 D
Sodium 136
Potassium 3.5
Chloride 104
Carbon Dioxide 23
BUN 13
Creatinine 0.9
Glucose 93
Calcium 9.2
Total Bilirubin 0.6
AST 48
ALT 76 H
Alkaline Phosphatase 225 H
Vital Signs:
Vital Signs
Temp Pulse Resp BP Pulse Ox
98.0 F 71 16 158/94 98
12/08/24 07:00 12/08/24 09:11 12/08/24 07:00 12/08/24 09:11 12/08/24 07:00
I&O
12/07/24 12/08/24 12/09/24
06:59 06:59 06:59
Intake Total 1840 / 1840 480 / 480
Output Total 1675 / 1675 300 / 300
Balance 165 / 165 180 / 180
--- NOTE | 2024-12-08 12:10 | W.DCSUMMARY ---
Discharge Summary
Discharge Data
Date of Admission: 12/04/24
Date of Discharge: 12/08/24
-
Pending Results: No
Hospital Course
84-year-old male with past medical history of diverticulitis, hypertension, hyperlipidemia, CAD, CKD, diverticulosis, hepatic steatosis, anxiety came to the hospital with abdominal pain known to have severe sepsis secondary to E. coli bacteremia.
Patient source of E. coli bacteremia remained unclear as his urine was negative for UTI. Abdomen imaging also did not show any signs of cholecystitis. Patient was seen by infectious disease throughout hospitalization. Initially patient was on IV
antibiotic which was later transitioned to p.o. antibiotics to complete the course on discharge. His latest blood culture continue to be negative. Given his previous history of gram-negative bacteremia secondary to diverticulitis, he was
instructed to follow-up with GI outpatient. Once his symptoms continue to improve, he was then discharged home with instructions to follow-up with all his physicians outpatient.
Discharge Plan
-
Patient Disposition: Home (Routine Discharge)
Discharge Diagnosis/Procedures: Severe sepsis secondary to E. coli bacteremia
Transaminitis
Diet: As tolerated
Activity: As tolerated
Driving Restrictions: As prior to admission
Bathing Restrictions: None
Activity Restrictions/Additional Instructions:
Follow-up with GI outpatient
Referrals:
UNKNOWN - PT DOES,NOT KNOW [Family Provider, Internal Medicine] - in less than 1 week
Prescriptions:
New
timolol maleate 0.5 % Drops
1 drp BOTH EYES BID Qty: 0 0RF
dorzolamide 2 % Drops
1 drp BOTH EYES BID Qty: 0 0RF
cephalexin 500 mg capsule
500 mg PO QID 10 Days Qty: 40 0RF
Continued
atorvastatin 20 MG tablet
20 mg PO HS
famotidine 20 MG tablet
20 mg PO HS
aspirin 81 MG tablet,chewable
81 mg PO QPM
PreserVision AREDS 1 CAP capsule
1 cap PO BID
cyanocobalamin (vitamin B-12) [Vitamin B-12] 1,000 mcg Tablet
1,000 mcg PO Q48H
alfuzosin 10 mg tablet extended release 24 hr
10 mg PO DAILY
dexlansoprazole 60 mg capsule,biphase delayed releas
60 mg PO DAILY
cholecalciferol (vitamin D3) 125 mcg (5,000 unit) Tablet
125 mcg PO DAILY
magnesium citrate 100 mg Tablet
100 mg PO DAILY
brimonidine
1 drp BOTH EYES TID
Changed
valsartan 320 mg tablet
320 mg PO DAILY Qty: 0 0RF
Discharge Orders:
Discharge Patient (As Directed); Ordered 12/08/24
Ordered By: Arnaldo Kearns
Discharge Date and Time
Discharge Date/Time: 12/08/24 13:31
Print Language: MALDIVIAN
--- NOTE | 2024-12-08 13:30 | VNURNOTE ---
PM-[facility] liaison reviewed chart. Pt had already left the hospital. Referral placed in [facility].
--- NOTE | 2024-12-08 13:41 | CM ---
MD entered order for discharge.
Pts will drive him home.
Offered VN Pt requested [facility] . Liaison Hamida notified of referral.
PLAN Home with [facility]
== END 2024-12-08 13:31 | disposition home health service (06) | DRG 872 ==
LOC: 4 EAST ACU 21:20
PROVIDERS: Internal Medicine; ADMITTING PHYSICIAN Hospitalist; ATTENDING PHYSICIAN Internal Medicine; CONSULT PHYSICIAN Internal Medicine Infectious Disease; EMERGENCY PHYSICIAN Emergency Medicine
DX: A41.51 Sepsis due to Escherichia coli [E. coli] (principal); R65.20 Severe sepsis without septic shock; I25.10 Atherosclerotic heart disease of native coronary artery without angina pectoris; K76.0 Fatty (change of) liver, not elsewhere classified; F41.9 Anxiety disorder, unspecified; G89.29 Other chronic pain; Z87.891 Personal history of nicotine dependence; Z88.0 Allergy status to penicillin; Z88.2 Allergy status to sulfonamides; I12.9 Hypertensive chronic kidney disease with stage 1 through stage 4 chronic kidney disease, or unspecified chronic kidney disease; N18.9 Chronic kidney disease, unspecified; Z79.82 Long term (current) use of aspirin; Z95.5 Presence of coronary angioplasty implant and graft; K21.9 Gastro-esophageal reflux disease without esophagitis; H35.30 Unspecified macular degeneration; N40.0 Benign prostatic hyperplasia without lower urinary tract symptoms; M19.90 Unspecified osteoarthritis, unspecified site; E78.00 Pure hypercholesterolemia, unspecified; H91.90 Unspecified hearing loss, unspecified ear; I48.91 Unspecified atrial fibrillation; K59.00 Constipation, unspecified; Z11.52 Encounter for screening for COVID-19
CPT/HCPCS: 51701; 71045; 74177; 76700; 80048; 80053; 80076; 81003; 81015; 83605; 85025; 86618; 87040; 87077; 87154; 87186; 87205; 87502; 87811; 93005; 96361; 96365; 96366; 96367; 96375; 97116; 97163; 97167; 99291; Q9967